=== PATIENT | female | born 1945 | race Caucasian/White ===

== ENCOUNTER 2016-07-01 22:47 | Emergency (ER) | payer MEDICARE, MEDICAID ==
[2016-07-01] MEDS ORDERED: NORMAL SALINE 1000 ML 500 ML IV ONE (23:00)
--- NOTE | 2016-07-01 23:11 | ER Document Report ---
ED Cardiac - General Mode of Arrival: Medic Information source: Patient TRAVEL OUTSIDE OF THE [place] IN LAST 30 DAYS: No - HPI Patient complains to provider of: Palpitations Quality of pain: None Severity now: None Associated symptoms: None Similar symptoms previously: No Recently seen / treated by doctor: No <VEDA ARELLANO - Last Filed: 07/02/16 04:00> <DEX MARTINEZ - Last Filed: 07/02/16 05:34> - General Stated Complaint: CHEST PAIN Notes: Patient is a 70 year old female that presents to the emergency department today with complaints of a heart racing sensation. Patient states this lasted for around 15-20 minutes. Patient does note she has had increased stress recently. Patient states there was no pain associated with the heart racing. Patient states she has had diarrhea recently. Patient denies any medication changes, recent illness, fevers, or a cough. (VEDA ARELLANO) - Related Data Allergies/Adverse Reactions: bupropion HCl [From Wellbutrin] Allergy (Severe, Verified 05/29/16 06:53) extreme depression Iodinated Contrast Media - Oral and Allergy (Mild, Verified 05/29/16 06:53) ithcing Past Medical History - General Information source: Patient - Social History Smoking Status: Current Every Day Smoker Cigarette use (# per day): Yes Frequency of alcohol use: None Drug Abuse: None Lives with: Family Family History: Reviewed & Not Pertinent - Past Medical History Cardiac Medical History: Reports: Hx Hypercholesterolemia, Hx Hypertension Pulmonary Medical History: Reports: Hx COPD, Hx Sleep Apnea Endocrine Medical History: Reports: Hx Diabetes Mellitus Type 1, Hx Diabetes Mellitus Type 2 Renal/ Medical History: GI Medical History: Reports: Hx Diverticulitis, Hx Gastroesophageal Reflux Disease Musculoskeltal Medical History: Reports Hx Arthritis - degenerative, Reports Hx Musculoskeletal Trauma Psychiatric Medical History: Reports: Hx Depression Past Surgical History: Reports: Hx Hysterectomy, Hx Orthopedic Surgery - right hip and knee - Immunizations Immunizations up to date: Yes Hx Diphtheria, Pertussis, Tetanus Vaccination: Yes Hx Pneumococcal Vaccination: 06/27/10 <VEDA ARELLANO - Last Filed: 07/02/16 04:00> Review of Systems - Review of Systems Constitutional: See HPI, Diaphoresis. denies: Fever EENT: No symptoms reported Cardiovascular: See HPI, Heart racing Respiratory: denies: Cough Gastrointestinal: See HPI, Diarrhea Genitourinary: No symptoms reported Female Genitourinary: No symptoms reported Musculoskeletal: No symptoms reported Skin: No symptoms reported Hematologic/Lymphatic: No symptoms reported Neurological/Psychological: No symptoms reported -: Yes All other systems reviewed and negative <VEDA ARELLANO - Last Filed: 07/02/16 04:00> Physical Exam <VEDA ARELLANO - Last Filed: 07/02/16 04:00> <DEX MARTINEZ - Last Filed: 07/02/16 05:34> - Vital signs Vitals: Resp 32 H 07/01/16 23:02 (VEDA ARELLANO) (DXE MARTINEZ) - Notes Notes: Physical Exam: General: Alert, appears well. HEENT: Normocephalic. Atraumatic. PERRL. Extraocular movements intact. Oropharynx clear. Dry mucous membranes. Neck: Supple. Non-tender. Respiratory: No respiratory distress. Clear and equal breath sounds bilaterally. Cardiovascular: Tachycardic, regular rhythm. Abdominal: Normal Inspection. Non-tender. No distension. Normal Bowel Sounds. Back: Non-tender. No deformity or step off. Extremities: Moves all four extremities. Upper extremities: Normal inspection. Non-tender. Normal color. Normal ROM. Normal temperature. Lower extremities: Normal inspection. Non-tender. No edema. Normal color. Normal ROM. Normal temperature. Neurological: Normal cognition. AAOx4. Normal speech. Psychological: Normal affect. Normal Mood. Skin: Warm. Dry. Normal color. (VEDA ARELLANO) Course - Laboratory Result Diagrams: 07/01/16 23:05 07/01/16 23:05 <VEDA ARELLANO - Last Filed: 07/02/16 04:00> - Laboratory Result Diagrams: 07/01/16 23:05 07/01/16 23:05 <DEX MARTINEZ - Last Filed: 07/02/16 05:34> - Re-evaluation Re-evalutation: 07/02/16 05:31 Patient feels better at this time. Patient is not tachycardic. Patient has been observed in the emergency department for 7 hours. No further tachycardia. Patient is been hydrated. Troponin is negative 2. Patient will be discharged home and is to follow-up with her doctor. Return immediately if any worsening or if any worsening or concerning symptoms. Understands agrees with plan. Stable for discharge. (DEX MARTINEZ) - Vital Signs Vital signs: Temp Pulse Resp BP Pulse Ox 98.4 F 25 L 22 H 140/77 H 90 L 07/01/16 23:06 07/01/16 23:06 07/02/16 03:00 07/02/16 02:01 07/02/16 03:00 (VEDA ARELLANO) (DEX MARTINEZ) - Laboratory Laboratory results interpreted by me: 07/01/16 07/01/16 07/01/16 23:05 23:05 23:05 WBC 11.7 H RBC 5.41 H Hgb 16.0 H Hct 47.2 H Sodium 146.3 H Creatinine 1.32 H Est GFR ( Amer) 48 L Est GFR (Non-Af Amer) 40 L Glucose 130 H Urine Protein 30 H Urine Glucose (UA) 50 H Urine Blood SMALL H (DEX MARTINEZ) Discharge <VEDA ARELLANO - Last Filed: 07/02/16 04:00> <DEX MARTINEZ - Last Filed: 07/02/16 05:34> - Discharge Clinical Impression: SVT (supraventricular tachycardia) Condition: Stable Disposition: HOME, SELF-CARE Instructions: Paroxysmal Supraventricular Tachycardia ([facility]) Additional Instructions: Please follow-up with your doctor next week. Return immediately if you have any worsening or concerning symptoms. Please avoid caffeine. Scribe Attestation: 07/02/16 05:34 I personally performed the services described in the documentation, reviewed and edited the documentation which was dictated to the scribe in my presence, and it accurately records my words and actions. (DEX MARTINEZ) Scribe Documentation - Scribe Written by Jose Eduardo:: Jose Eduardo Murphy, [id number] 07/01/2016 acting as scribe for :: Ritika <VEDA ARELLANO - Last Filed: 07/02/16 04:00>
[2016-07-01 23:24] LABS: ABSOLUTE BASOPHILS # (AUTO) 0.1 10^3/uL (0.0-0.2); ABSOLUTE EOSINOPHILS # (AUTO) 0.2 10^3/uL (0.0-0.6); ABSOLUTE LYMPHOCYTES (AUTO) 3.8 10^3/uL (0.5-4.7); ABSOLUTE MONOCYTES (AUTO) 0.7 10^3/uL (0.1-1.4); ABSOLUTE NEUT (AUTO) 6.9 10^3/uL (1.7-8.2); BASOPHILS % (AUTO) 0.9 % (0-2); EOSINOPHILS % (AUTO) 1.8 % (0-6); HEMATOCRIT 47.2 % (36.0-47.0); HGB HCT DIFFERENCE 0.8; LYMPHOCYTES % (AUTO) 32.2 % (13-45); MEAN CORPUSCULAR HEMOGLOBIN 29.5 pg (27.0-33.4); MEAN CORPUSCULAR HGB CONC 33.8 g/dL (32.0-36.0); MEAN CORPUSCULAR VOLUME 87 fl (80-97); MONOCYTES % (AUTO) 6.4 % (3-13); RED BLOOD COUNT 5.41 10^6/uL (3.72-5.28); RED CELL DISTRIBUTION WIDTH 12.8 % (11.5-14.0); SEGMENTED NEUTROPHILS % (AUTO) 58.7 % (42-78); WHITE BLOOD COUNT 11.7 10^3/uL (4.0-10.5)
[2016-07-01 23:25] LABS: APPEARANCE,URINE CLEAR; BILIRUBIN,URINE NEGATIVE (NEGATIVE); GLUCOSE, URINE 50 mg/dL (NEGATIVE); KETONES,URINE NEGATIVE (NEGATIVE); LEUKOCYTE ESTERASE,URINE NEGATIVE (NEGATIVE); NITRITE,URINE NEGATIVE (NEGATIVE); PROTEIN,URINE 30 mg/dL (NEGATIVE); URINE SPECIFIC GRAVITY 1.006; UROBILINOGEN,URINE NEGATIVE mg/dL (<2.0)
[2016-07-01 23:32] LABS: ALANINE AMINOTRANSFERASE 32 U/L (9-52); ALBUMIN 4.4 g/dL (3.5-5.0); ALKALINE PHOSPHATASE 126 U/L (38-126); ANION GAP 15 (5-19); ASPARTATE AMINO TRANSFERASE 17 U/L (14-36); BILIRUBIN,TOTAL 0.3 mg/dL (0.2-1.3); BLOOD UREA NITROGEN 16 mg/dL (7-20); CALCIUM 9.5 mg/dL (8.4-10.2); CARBON DIOXIDE 26 mmol/L (22-30); CHLORIDE 105 mmol/L (98-107); CREATINE KINASE 46 U/L (30-135); CREATININE RESULT 1.32 mg/dL (0.52-1.25); GLUCOSE 130 mg/dL (75-110); SODIUM 146.3 mmol/L (137-145); TOTAL PROTEIN 7.2 g/dL (6.3-8.2)
[2016-07-01 23:50] LABS: TROPONIN I < 0.012 ng/mL
[2016-07-02] MEDS ORDERED: NORMAL SALINE 1000 ML 1,000 ML IV ONE (01:52)
--- NOTE | 2016-07-02 05:12 | EKG REPORT ---
SEVERITY:- ABNORMAL ECG - SINUS TACHYCARDIA RIGHT AXIS DEVIATION CONSIDER ANTEROSEPTAL INFARCT : Confirmed by: Laura Haddad 02-Jul-2016 05:11:07
[2016-07-02 05:51] VITALS: BP 130/47
== END 2016-07-02 05:51 | disposition home or self-care (01) ==
LOC: ER 22:47
DX: I47.1 Supraventricular tachycardia (principal); R07.9 Chest pain, unspecified; R61 Generalized hyperhidrosis; F17.210 Nicotine dependence, cigarettes, uncomplicated; E78.00 Pure hypercholesterolemia, unspecified; I10 Essential (primary) hypertension; J44.9 Chronic obstructive pulmonary disease, unspecified; E11.9 Type 2 diabetes mellitus without complications; Z90.710 Acquired absence of both cervix and uterus
CPT/HCPCS: 93005; 99285; 96360; 36415; 82553; 82550; 84443; 85025; 80053; 81001; 84484; 83605; 71010; 93010; J7030 ×2

== ENCOUNTER 2017-04-02 09:14 | Observation (INO) | payer MEDICARE, MEDICAID ==
[2017-04-02] MEDS ORDERED: ASPIRIN 81 MG TABLET, CHEWABLE PO ONE (09:36)
--- NOTE | 2017-04-02 09:36 | ER Document Report ---
ED Medical Screen (RME) - General Chief Complaint: Chest Pain Stated Complaint: CHEST PAIN Time Seen by Provider: 04/02/17 09:36 Mode of Arrival: Ambulatory Information source: Patient Notes: 71-year-old female presents with palpitations. Patient notes she has a history of esophageal spasms for which her wire mesh knitter has put her on nitro. I have greeted and performed a rapid initial assessment of this patient. A comprehensive ED assessment and evaluation of the patient, analysis of test results and completion of the medical decision making process will be conducted by additional ED providers. PHYSICAL EXAMINATION: GENERAL: Well-appearing, well-nourished and in no acute distress. HEAD: Atraumatic, normocephalic. EYES: Pupils equal round extraocular movements intact, conjunctiva are normal. ENT: Nares patent NECK: Normal range of motion LUNGS: No respiratory distress Musculoskeletal: Normal range of motion NEUROLOGICAL: Normal speech, normal gait. PSYCH: Normal mood, normal affect. SKIN: Warm, Dry, normal turgor, no rashes or lesions noted. TRAVEL OUTSIDE OF THE [place] IN LAST 30 DAYS: No - Related Data Allergies/Adverse Reactions: bupropion HCl [From Wellbutrin] Allergy (Severe, Verified 04/02/17 09:25) extreme depression Iodinated Contrast- Oral and IV Dye Allergy (Mild, Verified 04/02/17 09:25) ithcing Past Medical History - Past Medical History Cardiac Medical History: Reports: Hx Hypercholesterolemia, Hx Hypertension Denies: Hx Coronary Artery Disease, Hx Heart Attack Pulmonary Medical History: Reports: Hx COPD, Hx Sleep Apnea Denies: Hx Asthma, Hx Bronchitis, Hx Pneumonia Neurological Medical History: Denies: Hx Cerebrovascular Accident, Hx Seizures Endocrine Medical History: Reports: Hx Diabetes Mellitus Type 1, Hx Diabetes Mellitus Type 2 Renal/ Medical History: Denies: Hx Peritoneal Dialysis GI Medical History: Reports: Hx Diverticulitis, Hx Gastroesophageal Reflux Disease. Denies: Hx Hepatitis, Hx Hiatal Hernia, Hx Ulcer Musculoskeltal Medical History: Reports Hx Arthritis - degenerative, Reports Hx Musculoskeletal Trauma Psychiatric Medical History: Reports: Hx Depression Infectious Medical History: Denies: Hx Hepatitis Past Surgical History: Reports: Hx Hysterectomy, Hx Orthopedic Surgery - right hip and knee. Denies: Hx Mastectomy, Hx Open Heart Surgery, Hx Pacemaker - Immunizations Immunizations up to date: Yes Hx Diphtheria, Pertussis, Tetanus Vaccination: Yes Physical Exam - Vital signs Vitals: Temp Pulse Resp BP Pulse Ox 98.3 F 74 20 196/88 H 97 04/02/17 09:25 04/02/17 09:25 04/02/17 09:25 04/02/17 09:25 04/02/17 09:25 Course - Vital Signs Vital signs: Temp Pulse Resp BP Pulse Ox 98.3 F 74 20 196/88 H 97 04/02/17 09:25 04/02/17 09:25 04/02/17 09:25 04/02/17 09:25 04/02/17 09:25
--- NOTE | 2017-04-02 10:04 | RADIOLOGY REPORT (SQ) ---
EXAM DESCRIPTION: CHEST SINGLE VIEW COMPLETED DATE/TIME: 04/02/2017 9:56 am REASON FOR STUDY: chest pain COMPARISON: 07/01/2016 EXAM PARAMETERS: NUMBER OF VIEWS: One view. TECHNIQUE: Single frontal radiographic view of the chest acquired. RADIATION DOSE: NA LIMITATIONS: None. FINDINGS: LUNGS AND PLEURA: No opacities, masses or pneumothorax. No pleural effusion. MEDIASTINUM AND HILAR STRUCTURES: No masses. Contour normal. HEART AND VASCULAR STRUCTURES: Heart normal in size. Normal vasculature. BONES: No acute findings. HARDWARE: None in the chest. OTHER: No other significant finding. IMPRESSION: NO ACUTE RADIOGRAPHIC FINDING IN THE CHEST. NO SIGNIFICANT CHANGE FROM PRIOR STUDY. TECHNICAL DOCUMENTATION: JOB ID: [id number]
[2017-04-02 10:09] LABS: ABSOLUTE BASOPHILS # (AUTO) 0.1 10^3/uL (0.0-0.2); ABSOLUTE EOSINOPHILS # (AUTO) 0.1 10^3/uL (0.0-0.6); ABSOLUTE LYMPHOCYTES (AUTO) 2.8 10^3/uL (0.5-4.7); ABSOLUTE MONOCYTES (AUTO) 0.6 10^3/uL (0.1-1.4); ABSOLUTE NEUT (AUTO) 4.9 10^3/uL (1.7-8.2); BASOPHILS % (AUTO) 0.8 % (0-2); EOSINOPHILS % (AUTO) 1.7 % (0-6); HEMATOCRIT 45.4 % (36.0-47.0); HEMOGLOBIN 15.7 g/dL (12.0-15.5); HGB HCT DIFFERENCE 1.7; LYMPHOCYTES % (AUTO) 32.8 % (13-45); MEAN CORPUSCULAR HEMOGLOBIN 29.4 pg (27.0-33.4); MEAN CORPUSCULAR HGB CONC 34.6 g/dL (32.0-36.0); MEAN CORPUSCULAR VOLUME 85 fl (80-97); MONOCYTES % (AUTO) 7.5 % (3-13); RED BLOOD COUNT 5.35 10^6/uL (3.72-5.28); RED CELL DISTRIBUTION WIDTH 12.7 % (11.5-14.0); SEGMENTED NEUTROPHILS % (AUTO) 57.2 % (42-78); WHITE BLOOD COUNT 8.5 10^3/uL (4.0-10.5)
[2017-04-02] MEDS ORDERED: NITROGLYCERIN 0.4 MG/TAB 25 TAB/BOTTLE SL ONE (10:12)
[2017-04-02 10:25] LABS: ALANINE AMINOTRANSFERASE 23 U/L (9-52); ALBUMIN 4.4 g/dL (3.5-5.0); ALKALINE PHOSPHATASE 118 U/L (38-126); ANION GAP 12 (5-19); ASPARTATE AMINO TRANSFERASE 14 U/L (14-36); BILIRUBIN,DIRECT 0.3 mg/dL (0.0-0.4); BILIRUBIN,TOTAL 0.5 mg/dL (0.2-1.3); BLOOD UREA NITROGEN 17 mg/dL (7-20); CALCIUM 10.1 mg/dL (8.4-10.2); CARBON DIOXIDE 31 mmol/L (22-30); CHLORIDE 103 mmol/L (98-107); CREATINE KINASE 27 U/L (30-135); CREATININE RESULT 0.84 mg/dL (0.52-1.25); GLUCOSE 90 mg/dL (75-110); MAGNESIUM 1.6 mg/dL (1.6-2.3); POTASSIUM 4.1 mmol/L (3.6-5.0); SODIUM 145.8 mmol/L (137-145); TOTAL PROTEIN 7.1 g/dL (6.3-8.2)
--- NOTE | 2017-04-02 10:33 | ER Document Report ---
ED General - General Chief Complaint: Chest Pain Stated Complaint: CHEST PAIN Time Seen by Provider: 04/02/17 09:36 Mode of Arrival: Ambulatory Information source: Patient Notes: Patient presents emergency department with complaints of heart flutter, chest pain. Patient reports yesterday she was playing the computer and she felt some chest pain took a nitro and the pain went away. After the nitro she felt esophageal burning. Patient reports history of esophageal spasms for which she was prescribed nitro. Describes history of [place]/ CAD. She thought she was experiencing another esophageal spasm.. She reports pain was off and on yesterday. Today pain is constant. She reports it feels like needle pricks. She also complains of nausea since yesterday. Reports it feels like it giron under her right arm. TRAVEL OUTSIDE OF THE [place] IN LAST 30 DAYS: No - HPI Onset: Yesterday Onset/Duration: Persistent Quality of pain: Sharp Pain Level: 3 Associated symptoms: Nausea Exacerbated by: Denies Relieved by: Denies Similar symptoms previously: Yes Recently seen / treated by doctor: No - Related Data Allergies/Adverse Reactions: bupropion HCl [From Wellbutrin] Allergy (Severe, Verified 04/02/17 09:25) extreme depression Iodinated Contrast- Oral and IV Dye Allergy (Mild, Verified 04/02/17 10:17) itching Home Medications: Current Home Medications Aspirin [Ecotrin 81 mg EC Tablet] 81 mg PO DAILY 04/02/17 [History] Carvedilol [Coreg 12.5 mg Tablet] 12.5 mg PO Q12 04/02/17 [History] Chlorthalidone [Hygroton 25 mg Tablet] 25 mg PO DAILY 04/02/17 [History] Donepezil HCl [Aricept] 10 mg PO QPM 04/02/17 [History] Insulin Aspart [Novolog Flexpen] 0 unit SQ .SLIDING SCALE 04/02/17 [History] Insulin Glargine,Hum.rec.anlog [Lantus Solostar] 30 unit SQ QAM 04/02/17 [ History] Lisinopril [Prinivil 40 mg Tablet] 40 mg PO DAILY 04/02/17 [History] Simvastatin [Zocor 20 mg Tablet] 20 mg PO QPM 04/02/17 [History] Venlafaxine HCl [Venlafaxine HCl ER] 150 mg PO DAILY 04/02/17 [History] Past Medical History - General Information source: Patient - Social History Smoking Status: Current Every Day Smoker Cigarette use (# per day): Yes - 1ppd Chew tobacco use (# tins/day): No Frequency of alcohol use: None Drug Abuse: None Lives with: Family Family History: Reviewed & Not Pertinent Patient has suicidal ideation: No Patient has homicidal ideation: No - Past Medical History Cardiac Medical History: Reports: Hx Hypercholesterolemia, Hx Hypertension Denies: Hx Coronary Artery Disease, Hx Heart Attack Pulmonary Medical History: Reports: Hx COPD, Hx Sleep Apnea Denies: Hx Asthma, Hx Bronchitis, Hx Pneumonia Neurological Medical History: Denies: Hx Cerebrovascular Accident, Hx Seizures Endocrine Medical History: Reports: Hx Diabetes Mellitus Type 1, Hx Diabetes Mellitus Type 2 Renal/ Medical History: Denies: Hx Peritoneal Dialysis GI Medical History: Reports: Hx Diverticulitis, Hx Gastroesophageal Reflux Disease. Denies: Hx Hepatitis, Hx Hiatal Hernia, Hx Ulcer Musculoskeltal Medical History: Reports Hx Arthritis - degenerative, Reports Hx Musculoskeletal Trauma Psychiatric Medical History: Reports: Hx Depression Infectious Medical History: Denies: Hx Hepatitis Past Surgical History: Reports: Hx Cholecystectomy, Hx Hysterectomy, Hx Orthopedic Surgery - right hip and knee. Denies: Hx Mastectomy, Hx Open Heart Surgery, Hx Pacemaker - Immunizations Immunizations up to date: Yes Hx Diphtheria, Pertussis, Tetanus Vaccination: Yes Hx Pneumococcal Vaccination: 06/27/10 Review of Systems - Review of Systems Notes: Review HPI for review of systems., All other systems negative Physical Exam - Vital signs Vitals: Temp Pulse Resp BP Pulse Ox 98.3 F 74 20 196/88 H 97 04/02/17 09:25 04/02/17 09:25 04/02/17 09:25 04/02/17 09:25 04/02/17 09:25 - Notes Notes: PHYSICAL EXAMINATION: GENERAL: nontoxic looking HEAD: Atraumatic, normocephalic. EYES: Pupils equal round and reactive to light, extraocular movements intact, sclera anicteric, conjunctiva are normal. ENT: nares patent, oropharynx clear without exudates. Moist mucous membranes. NECK: Normal range of motion, supple without lymphadenopathy LUNGS: CTAB and equal. No wheezes rales or rhonchi. chest wall ttp HEART: Regular rate and rhythm without murmurs ABDOMEN: Soft, no tenderness. No guarding, no rebound EXTREMITIES: Normal range of motion, no pitting edema. No cyanosis. NEUROLOGICAL: Cranial nerves grossly intact. Normal sensory/motor exams. PSYCH: Normal mood, normal affect. SKIN: Warm, Dry, normal turgor, no rashes or lesions noted Course - Re-evaluation Re-evalutation: 04/02/17 10:15 SL NTG given, pt reports relief of CP with ntg. 04/02/17 11:30 Pain relieved with - Vital Signs Vital signs: Temp Pulse Resp BP Pulse Ox 98.1 F 62 13 150/59 H 98 04/02/17 13:46 04/02/17 14:00 04/02/17 13:46 04/02/17 13:46 04/02/17 13:46 - Laboratory Result Diagrams: 04/02/17 09:45 04/02/17 09:45 Laboratory results interpreted by me: 04/02/17 04/02/17 09:45 09:45 RBC 5.35 H Hgb 15.7 H Sodium 145.8 H Carbon Dioxide 31 H Creatine Kinase 27 L - Diagnostic Test Radiology reviewed: Image reviewed, Reports reviewed - Negative chest x-ray no pneumonia - EKG Interpretation by Me EKG shows normal: Sinus rhythm Discharge - Discharge Clinical Impression: Chest pain Qualifiers: Chest pain type: unspecified Qualified Code(s): R07.9 - Chest pain, unspecified Condition: Stable Disposition: ADMITTED OBSERVATION Admitting Provider: Hospitalist [facility] Unit Admitted: Telemetry
[2017-04-02 10:37] LABS: CREATINE KINASE MB 0.52 ng/mL (<4.55)
[2017-04-02 10:47] LABS: TROPONIN I < 0.012 ng/mL
[2017-04-02] MEDS ORDERED: NITROGLYCERIN 2% OINTMENT 1 GM PACKET TP ONE (11:08)
[2017-04-02] MEDS ORDERED: ONDANSETRON 4 MG TAB.RAPDIS PO PRN (11:42)
[2017-04-02] MEDS ORDERED: LANSOPRAZOLE 15 MG TAB.RAP.DR PO ONE (11:42)
[2017-04-02] MEDS ORDERED: MORPHINE SULFATE 10 MG/ML INJ IV PRN (11:42)
[2017-04-02] MEDS ORDERED: DEXTROSE 40% GEL 15 GM TUBE PO PRN ×2 (11:46)
[2017-04-02] MEDS ORDERED: DEXTROSE 50%-WATER 25 GM/50 ML DISP.SYRIN IV PRN ×2 (11:46)
[2017-04-02] MEDS ORDERED: GLUCAGON,HUMAN RECOMB 1 MG INJ IM PRN (11:46)
[2017-04-02] MEDS: NITROGLYCERIN 2% OINTMENT 1 GM PACKET TP SCH ×2 (12:00→17:15)
[2017-04-02 13:17] LABS: CREATINE KINASE MB 0.42 ng/mL (<4.55)
[2017-04-02 13:19] LABS: TROPONIN I < 0.012 ng/mL
[2017-04-02] MEDS ORDERED: METOCLOPRAMIDE HCL ORAL SOLN 10 MG/10 ML UDCUP PO ONE (15:14)
[2017-04-02] MEDS ORDERED: LIDOCAINE 2% VISCOUS SOLN 20 ML UDCUP PO ONE (15:14)
[2017-04-02] MEDS ORDERED: MAG HYDROX/AL HYDROX/SIMETH SUSP 30 ML UDCUP PO ONE (15:14)
[2017-04-02] MEDS: METFORMIN HCL 500 MG TABLET PO SCH (17:14)
[2017-04-02] MEDS: SIMVASTATIN 10 MG TABLET PO SCH (17:14)
[2017-04-02] MEDS: DOCUSATE SODIUM 100 MG CAPSULE PO SCH (17:21)
[2017-04-02] MEDS ORDERED: LEVALBUTEROL HCL NEB 1.25 MG/3 ML AMPUL NEB PRN (17:43)
--- NOTE | 2017-04-02 17:59 | PDOC H&P ---
History of Present Illness Admission Date/PCP: 04/02/17 11:42 History of Present Illness: MADELINE ALMONTE is a 71 year old female with a past medical history of diabetes mellitus, hypertension, hyperlipidemia, cervical cancer, dementia, questionable COPD who presents to the emergency department with complaints of chest pain. She reports that while she is lying on her left side yesterday she had some feelings of fluttering in her chest. This went away spontaneously and lasted less than 30 seconds. She reports that she has a history of esophageal spasm and had some sensation that was similar and took nitroglycerin. She reports that this incision has not completely gone away yet. She reports that she was at rest when she experienced some sharp pain that went from her midepigastrium to her midsternum and all across to her left breast. She denied any associated vomiting, shortness of breath, diaphoresis. She does report nausea. Patient is referred to the hospitalist service for chest pain. Past Medical History Cardiac Medical History: Reports: Hyperlipidema, Hypertension Denies: Coronary Artery Disease, Myocardial Infarction Pulmonary Medical History: Reports: Chronic Obstructive Pulmonary Disease (COPD) , Sleep Apnea Denies: Asthma, Bronchitis, Pneumonia Neurological Medical History: Denies: Seizures Endocrine Medical History: Reports: Diabetes Mellitus Type 2, Obesity Renal/ Medical History: Malignancy Medical History: Reports: Cervical Cancer GI Medical History: Reports: Diverticulitis, Gastroesophageal Reflux Disease Denies: Hepatitis, Hiatal Hernia Musculoskeltal Medical History: Reports: Arthritis - degenerative Psychiatric Medical History: Reports: Depression Hematology: Denies: Anemia, Sickle Cell Disease Past Surgical History Past Surgical History: Reports: Cholecystectomy, Hysterectomy, Orthopedic Surgery - right hip and knee, Other - Bowel resection Denies: Amputation, Mastectomy, Pacemaker Social History Lives with: Family Smoking Status: Current Every Day Smoker Cigarettes Packs Per Day: 1 Number of Years Smokin Last Time Smoked: 04/02/2017 Frequency of Alcohol Use: None Hx Recreational Drug Use: No Drugs: None Hx Prescription Drug Abuse: No - Advance Directive Resuscitation Status: Full Code Surrogate healthcare decision maker:: Barrie Alvarado, significant other Family History Family History: CAD, DM, Hypertension, Malignancy, Other - ESRD Parental Family History Reviewed: Yes Children Family History Reviewed: Yes Sibling(s) Family History Reviewed.: Yes Medication/Allergy Home Medications: Aspirin [Ecotrin 81 mg EC Tablet] 81 mg PO DAILY 04/02/17 Carvedilol [Coreg 12.5 mg Tablet] 12.5 mg PO Q12 04/02/17 Chlorthalidone [Hygroton 25 mg Tablet] 25 mg PO DAILY 04/02/17 Donepezil HCl [Aricept] 10 mg PO QPM 04/02/17 Insulin Aspart [Novolog Flexpen] 0 unit SQ .SLIDING SCALE 04/02/17 Insulin Glargine,Hum.rec.anlog [Lantus Solostar] 30 unit SQ QAM 04/02/17 Lisinopril [Prinivil 40 mg Tablet] 40 mg PO DAILY 04/02/17 Simvastatin [Zocor 20 mg Tablet] 20 mg PO QPM 04/02/17 Venlafaxine HCl [Venlafaxine HCl ER] 150 mg PO DAILY 04/02/17 Allergies/Adverse Reactions: bupropion HCl [From Wellbutrin] Allergy (Severe, Verified 04/02/17 09:25) extreme depression Iodinated Contrast- Oral and IV Dye Allergy (Mild, Verified 04/02/17 10:17) itching Review of Systems Constitutional: PRESENT: chills. ABSENT: fever(s), headache(s), weakness, weight gain, weight loss Eyes: ABSENT: visual disturbances Ears: ABSENT: hearing changes Cardiovascular: ABSENT: chest pain, dyspnea on exertion, edema, orthropnea, palpitations Respiratory: PRESENT: cough, sputum - White. ABSENT: dyspnea, hemoptysis Gastrointestinal: PRESENT: bloating, heartburn, nausea. ABSENT: abdominal pain , constipation, diarrhea, hematemesis, hematochezia, melena, vomiting Genitourinary: ABSENT: dysuria, hematuria Musculoskeletal: ABSENT: joint swelling Integumentary: ABSENT: rash, wounds Neurological: ABSENT: abnormal gait, abnormal speech, confusion, dizziness, focal weakness, syncope Psychiatric: ABSENT: anxiety, depression, homidical ideation, suicidal ideation Endocrine: ABSENT: cold intolerance, heat intolerance, polydipsia, polyuria Hematologic/Lymphatic: ABSENT: easy bleeding, easy bruising Physical Exam Vital Signs: Temp Pulse Resp BP Pulse Ox 98.1 F 62 13 150/59 H 98 04/02/17 13:46 04/02/17 14:00 04/02/17 13:46 04/02/17 13:46 04/02/17 13:46 Intake & Output 04/01/17 04/02/17 04/03/17 06:59 06:59 06:59 Weight 76.856 kg General appearance: PRESENT: no acute distress, obese, well-developed, well- nourished Head exam: PRESENT: atraumatic, normocephalic Eye exam: PRESENT: conjunctiva pink, EOMI, PERRLA. ABSENT: scleral icterus Ear exam: PRESENT: normal external ear exam Mouth exam: PRESENT: moist, tongue midline Teeth exam: PRESENT: edentulous Neck exam: ABSENT: JVD, lymphadenopathy, thyromegaly, tracheal deviation Respiratory exam: PRESENT: clear to auscultation jered. ABSENT: rales, rhonchi, wheezes Cardiovascular exam: PRESENT: RRR, +S1, +S2. ABSENT: diastolic murmur, gallop, rubs, systolic murmur Pulses: PRESENT: normal dorsalis pedis pul Vascular exam: PRESENT: normal capillary refill GI/Abdominal exam: PRESENT: normal bowel sounds, soft. ABSENT: distended, guarding, mass, organolmegaly, rebound, tenderness Rectal exam: PRESENT: deferred Extremities exam: PRESENT: full ROM. ABSENT: calf tenderness, clubbing, pedal edema Neurological exam: PRESENT: alert, awake, oriented to person, oriented to place , oriented to time, oriented to situation, CN II-XII grossly intact. ABSENT: motor sensory deficit Psychiatric exam: PRESENT: appropriate affect, normal mood. ABSENT: homicidal ideation, suicidal ideation Skin exam: PRESENT: dry, intact, warm. ABSENT: cyanosis, rash Results Laboratory Results: 04/02/17 12:30 CK-MB (CK-2) 0.42 Troponin I < 0.012 Impressions: Chest X-Ray 04/02/17 09:36 IMPRESSION: NO ACUTE RADIOGRAPHIC FINDING IN THE CHEST. NO SIGNIFICANT CHANGE FROM PRIOR STUDY. Assessment & Plan - Diagnosis (1) Chest pain Qualifiers: Chest pain type: unspecified Qualified Code(s): R07.9 - Chest pain, unspecified Is this a current diagnosis for this admission?: Yes Plan: Likely secondary to COPD exacerbation versus CHF exacerbation Patient is at high risk for ACS This patient on telemetry, serial cardiac enzymes, stress test in a.m. 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, managed as type 1 Is this a current diagnosis for this admission?: Yes Plan: Check A1c continue home medications carb controlled diet (3) Chronic airway obstruction Qualifiers: Emphysema type: unspecified Is this a current diagnosis for this admission?: Yes Plan: Place on Solu-Medrol and nebulized treatments (4) Tobacco use disorder Is this a current diagnosis for this admission?: Yes Plan: Encourage cessation offered nicotine patch which she declined (5) Obesity (BMI 30.0-34.9) Is this a current diagnosis for this admission?: Yes - Time Time Spent: 50 to 70 Minutes Medications reviewed and adjusted accordingly: Yes Anticipated discharge: Home Within: within 48 hours
[2017-04-02 19:02] LABS: CREATINE KINASE MB 0.43 ng/mL (<4.55)
[2017-04-02 19:07] LABS: TROPONIN I < 0.012 ng/mL
[2017-04-02] MEDS: IPRATROPIUM/ALBUTEROL 0.5-2.5 MG/3 ML AMPUL NEB SCH (20:26)
[2017-04-02] MEDS: METHYLPREDNISOLONE INJ 40 MG/1 ML SDV IV SCH (21:37)
[2017-04-02] MEDS: CARVEDILOL 12.5 MG TABLET PO SCH (21:37)
[2017-04-02] MEDS ORDERED: ATORVASTATIN CALCIUM 40 MG TABLET PO SCH (22:00)
[2017-04-03] MEDS: NITROGLYCERIN 2% OINTMENT 1 GM PACKET TP SCH ×4 (00:13→17:04)
[2017-04-03 01:08] LABS: CREATINE KINASE MB 0.41 ng/mL (<4.55); TROPONIN I < 0.012 ng/mL
[2017-04-03] MEDS: METHYLPREDNISOLONE INJ 40 MG/1 ML SDV IV SCH ×2 (05:59→13:27)
[2017-04-03 06:44] LABS: CHOLESTEROL 165.54 mg/dL (0-200); Direct HDL 44 mg/dL (>40); TRIGLYCERIDES 73 mg/dL (<150)
[2017-04-03 06:55] LABS: DIRECT LDL 117 mg/dL (<100)
[2017-04-03] MEDS: INSULIN LISPRO 100 UNIT/ML 3 ML VIAL SUBCUT PRN ×2 (06:56→17:03)
[2017-04-03 07:00] LABS: CREATINE KINASE < 20 U/L (30-135)
[2017-04-03] MEDS ORDERED: INSULIN GLARGINE,HUM.REC.ANLOG 300 UNIT/3 ML INSULN.PEN SUBCUT SCH (08:00)
[2017-04-03] MEDS: IPRATROPIUM/ALBUTEROL 0.5-2.5 MG/3 ML AMPUL NEB SCH ×2 (08:32→14:05)
[2017-04-03] MEDS ORDERED: CHLORTHALIDONE 25 MG TABLET PO SCH (10:00)
[2017-04-03] MEDS ORDERED: (PENDING PHARMACY ID) (Lisinopril [Lisinopril] 40 MG) PO SCH (10:00)
[2017-04-03] MEDS ORDERED: LISINOPRIL 10 MG TABLET PO SCH (10:00)
[2017-04-03] MEDS ORDERED: ASPIRIN 325 MG TABLET, ENT COATED PO SCH (10:00)
[2017-04-03] MEDS ORDERED: VENLAFAXINE HCL 75 MG CAP.SR.24H PO SCH (10:00)
[2017-04-03] MEDS: METFORMIN HCL 500 MG TABLET PO SCH ×2 (11:22→17:01)
[2017-04-03] MEDS: CARVEDILOL 12.5 MG TABLET PO SCH (11:22)
[2017-04-03] MEDS: DOCUSATE SODIUM 100 MG CAPSULE PO SCH ×2 (11:23→17:04)
--- NOTE | 2017-04-03 12:33 | DRAGON STRESS TEST REPORT ---
INTRAVENOUS LEXISCAN CARDIOLITE STRESS TEST USING SINGLE PHOTON EMMISION COMPUTERIZED TOMOGRAPHIC. DATE OF PROCEDURE: April 03, 2017 INDICATION : Chest pain CARDIAC RISK FACTORS: Diabetes, hypertension, dyslipidemia RESTING EKG: Sinus rhythm without any baseline ST-T wave changes STRESS EKG: No significant changes noted with LexiScan bolus REASON FOR TERMINATION: Protocol. PROCEDURE REPORT: Baseline heart rate 68 beats per minute with blood pressure of 160/54. Patient had no significant complaints. Heart rate at 2 minutes post bolus 95 with a blood pressure of 168/55. 3 minutes post bolus heart rate 85 with blood pressure of 161/60. No significant EKG changes were noted. Patient did complain of chest discomfort during the procedure but there were no significant EKG changes associated. Subsequently in recovery patient was given sublingual nitroglycerin 1 with resolution of chest pain.. Patient injected with Aminophyllin 75 mg at 3 minutes or later after Lexiscan bolus. CONCLUSIONS: Normal EKG and hemodynamic response to IV LexiScan. NUCLEAR DATA: At rest the patient was given 10.68 millicuries of technetium 99 sestamibi injected intravenously. As per protocol rest gated SPECT images were obtained. Subsequently the patient was given intravenous LexiScan at a dose of 0.4 mg in 5 mL intravenously, followed by flush with normal saline. Subsequently the stress dose of 30.9 millicuries of technetium 99 sestamibi was injected intravenously. As per protocol stress gated images were obtained. NUCLEAR INTERPRETATION: Both raw and processed data were used for interpretation. Visual, qualitative, computer-generated quantitative data was used. There was good myocardial uptake of technetium compound. Motion artifact and soft tissue attenuations were noted. Increased visceral uptake was noted. No definitive areas of transient perfusion defect noted. No definitive areas of fixed perfusion defect or scars noted. EKG gated imaging showed LV EF at 76 %, rest and stress gated EF similar visually. T. I D. ratio was 0.93. Lung heart ratio noted to be within normal limits 0.34. No significant extracardiac and abnormal radiotracer activities were noted. RV free wall uptake was noted to be WNL. IMPRESSION: Also refer to comments under nuclear interpretation. Also test results needs to be interpreted in the context of pretest probability. 1. There is no definitive scintigraphic evidence of LexiScan induced myocardial ischemia. 2. There is no definitive scintigraphic evidence of myocardial infarction/scar. 3. EKG gated imaging shows left ventricular ejection fraction of approximately 76 %. 4. Clinical correlation requested as occasionally single vessel disease or balanced ischemia could be missed. In approximately 10% of the cases Lexiscan may not cause adequate vasodilatory stress. RECOMMENDATIONS: Aggressive risk factor modification, medical therapy. Clinical correlation with echocardiogram derived ejection fraction. Inability to exercise by itself can lead to increased cardiovascular event risks. Consider cardiology consultation and or follow-up if clinically indicated. I AM AVAILABLE FOR CARDIOLOGY CONSULTATION AND FOLLOWUP IF REQUESTED BY PMD Laura Haddad M.D., [employer] Manager Game tube inspector, Board certified in cardiovascular diseases, Nuclear cardiology, Echocardiography Cardiac CT and cardiac MRI Ph. [phone] JAYDEN
[2017-04-03] MEDS ORDERED: REGADENOSON INJ 0.4 MG/5 ML DISP.SYRIN IV ONE (14:32)
[2017-04-03] MEDS ORDERED: NITROGLYCERIN 0.4 MG/TAB 25 TAB/BOTTLE ONE (14:32)
[2017-04-03] MEDS ORDERED: AMINOPHYLLINE INJ/PF 250 MG/10 ML SDV IV ONE (14:32)
[2017-04-03] MEDS: SIMVASTATIN 10 MG TABLET PO SCH (17:02)
--- NOTE | 2017-04-03 17:17 | PDOC DISCHARGE SUMMARY ---
General - Admit/Disc Date/PCP Admission Date/Primary Care Provider: 04/02/17 11:42 Discharge Date: 04/03/17 - Discharge Diagnosis (1) Chest pain Is this a current diagnosis for this admission?: Yes 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, managed as type 1 Is this a current diagnosis for this admission?: Yes (3) Chronic airway obstruction Is this a current diagnosis for this admission?: Yes (4) Tobacco use disorder Is this a current diagnosis for this admission?: Yes (5) Obesity (BMI 30.0-34.9) Is this a current diagnosis for this admission?: Yes (6) GERD (gastroesophageal reflux disease) Is this a current diagnosis for this admission?: Yes - Additional Information Resuscitation Status: Full Code Discharge Diet: Cardiac, Diabetic Discharge Activity: Activity As Tolerated Home Medications: Aspirin [Ecotrin 81 mg EC Tablet] 81 mg PO DAILY 04/02/17 Carvedilol [Coreg 12.5 mg Tablet] 12.5 mg PO Q12 04/02/17 Chlorthalidone [Hygroton 25 mg Tablet] 25 mg PO DAILY 04/02/17 Donepezil HCl [Aricept] 10 mg PO QPM 04/02/17 Insulin Aspart [Novolog Flexpen] 0 unit SQ .SLIDING SCALE 04/02/17 Insulin Glargine,Hum.rec.anlog [Lantus Solostar] 30 unit SQ QAM 04/02/17 Lisinopril [Prinivil 40 mg Tablet] 40 mg PO DAILY 04/02/17 Simvastatin [Zocor 20 mg Tablet] 20 mg PO QPM 04/02/17 Venlafaxine HCl [Venlafaxine HCl ER] 150 mg PO DAILY 04/02/17 Albuterol Sulfate [Ventolin Hfa] 1 - 2 puff IH Q4 PRN #1 hfa.aer.ad 04/03/17 Prednisone 10 mg PO ASDIR PRN #1 tab.ds.pk 04/03/17 History of Present Illness History of Present Illness: MADELINE ALMONTE is a 71 year old female with a past medical history of diabetes mellitus, hypertension, hyperlipidemia, cervical cancer, dementia, questionable COPD who presents to the emergency department with complaints of chest pain. She reports that while she is lying on her left side yesterday she had some feelings of fluttering in her chest. This went away spontaneously and lasted less than 30 seconds. She reports that she has a history of esophageal spasm and had some sensation that was similar and took nitroglycerin. She reports that this incision has not completely gone away yet. She reports that she was at rest when she experienced some sharp pain that went from her midepigastrium to her midsternum and all across to her left breast. She denied any associated vomiting, shortness of breath, diaphoresis. She does report nausea. Patient is referred to the hospitalist service for chest pain. Hospital Course Hospital Course: Patient was placed on telemetry and no abnormalities were noted. Patient had negative serial troponins. She underwent nuclear cardiac stress examination on 04/03/2017 which was read as negative. During her stress test she had some chest pain and cardiology was consulted. They felt this was also noncardiac in origin. We do recommend a GI follow-up outpatient. Patient was treated for mild COPD exacerbation with improvement. She is discharged in stable condition. Physical Exam Vital Signs: Temp Pulse Resp BP Pulse Ox 98.0 F 70 16 150/56 H 96 04/03/17 15:24 04/03/17 15:24 04/03/17 15:24 04/03/17 15:24 04/03/17 15:24 Intake & Output 04/02/17 04/03/17 04/04/17 06:59 06:59 06:59 Intake Total 983 760 Output Total 1100 Balance -117 760 Weight 76.8 kg Exam: General: Awake alert and oriented x3, no acute respiratory distress HEENT: AT/NC, PERRL, EOMI, oropharynx is moist, pink, no scleral icterus, no conjunctival injection Neck: No JVD, trachea midline Chest: Clear to auscultation bilaterally, no wheezes rhonchi or rales CV: Regular rate and rhythm, normal S1 and S2, no murmur, rub, or gallop Abdomen: Soft, nontender to palpation, nondistended, active bowel sounds; no rebound, rigidity, or guarding Extremities: No cyanosis, clubbing or edema Neuro: Cranial nerves II through XII are grossly intact without focal deficits; awake alert and oriented x3 Psych: Normal mood and affect Results Laboratory Results: 04/03/17 06:00 Triglycerides 73 Cholesterol 165.54 LDL Cholesterol Direct 117 H VLDL Cholesterol 15.0 HDL Cholesterol 44 04/02/17 04/02/17 04/03/17 12:30 18:14 00:25 Creatine Kinase CK-MB (CK-2) 0.42 0.43 0.41 Troponin I < 0.012 < 0.012 < 0.012 04/03/17 06:00 Creatine Kinase < 20 L CK-MB (CK-2) Troponin I Impressions: Chest X-Ray 04/02/17 09:36 IMPRESSION: NO ACUTE RADIOGRAPHIC FINDING IN THE CHEST. NO SIGNIFICANT CHANGE FROM PRIOR STUDY. Qualifiers PATEINT BEING DISCHARGED WITH ANY OF THE FOLLOWING DIAGNOSIS?: No Plan Time Spent: Less than 30 Minutes
--- NOTE | 2017-04-03 17:33 | PDOC CONSULTATION ---
Consultation Consult Date: 04/03/17 Attending physician:: DENNIS CHOI Consult reason:: Chest pain History of Present Illness Admission Date/PCP: 04/02/17 11:42 Patient complains of: Chest pain History of Present Illness: MADELINE ALMONTE is a 71 year old female with a past medical history of diabetes mellitus, hypertension, hyperlipidemia, cervical cancer, dementia, questionable COPD who presents to the emergency department with complaints of chest pain. She reports that while she is lying on her left side yesterday she had some feelings of fluttering in her chest. This went away spontaneously and lasted less than 30 seconds. She reports that she has a history of esophageal spasm and had some sensation that was similar and took nitroglycerin. She reports that this i improved her symptoms but ncision has not completely gone away yet. She reports that she was at rest when she experienced some sharp pain that went from her midepigastrium to her midsternum and all across to her left breast. She denied any associated vomiting, shortness of breath, diaphoresis. She does report nausea. Patient is referred to the hospitalist service for chest pain. This history was reviewed and confirmed. Patient had a nuclear stress test during which she developed significant chest discomfort and subsequently needed nitroglycerin sublingual and also a GI cocktail. Because of recurrence of chest pain, I was asked to evaluate this patient. The discomfort patient had in the stress test was described as both sharp as well as squeezing feeling in the chest. There was no associated nausea vomiting or diaphoresis. Patient denied any associated shortness of breath. There was no significant radiation. EKGs were reviewed and were noted to have no significant change. Past Medical History Cardiac Medical History: Reports: Hyperlipidema, Hypertension Denies: Coronary Artery Disease, Myocardial Infarction Pulmonary Medical History: Reports: Chronic Obstructive Pulmonary Disease (COPD) , Sleep Apnea Denies: Asthma, Bronchitis, Pneumonia Neurological Medical History: Denies: Seizures Endocrine Medical History: Reports: Diabetes Mellitus Type 1, Diabetes Mellitus Type 2, Obesity Renal/ Medical History: Malignancy Medical History: Reports: Cervical Cancer GI Medical History: Reports: Diverticulitis, Gastroesophageal Reflux Disease Denies: Hepatitis, Hiatal Hernia Musculoskeltal Medical History: Reports: Arthritis - degenerative Psychiatric Medical History: Reports: Depression Hematology: Denies: Anemia, Sickle Cell Disease Past Surgical History Past Surgical History: Reports: Cholecystectomy, Hysterectomy, Orthopedic Surgery - right hip and knee, Other - Bowel resection Denies: Amputation, Mastectomy, Pacemaker Social History Information Source: Patient Lives with: Family Smoking Status: Current Every Day Smoker Cigarettes Packs Per Day: 1 Number of Years Smokin Last Time Smoked: 04/02/2017 Frequency of Alcohol Use: None Hx Recreational Drug Use: No Drugs: None Hx Prescription Drug Abuse: No - Advance Directive Resuscitation Status: Full Code Surrogate healthcare decision maker:: Patient significant live-in boyfriend. Family History Family History: Hypertension Parental Family History Reviewed: Yes Children Family History Reviewed: Yes Sibling(s) Family History Reviewed.: Yes Medication/Allergy Home Medications: Aspirin [Ecotrin 81 mg EC Tablet] 81 mg PO DAILY 04/02/17 Carvedilol [Coreg 12.5 mg Tablet] 12.5 mg PO Q12 04/02/17 Chlorthalidone [Hygroton 25 mg Tablet] 25 mg PO DAILY 04/02/17 Donepezil HCl [Aricept] 10 mg PO QPM 04/02/17 Insulin Aspart [Novolog Flexpen] 0 unit SQ .SLIDING SCALE 04/02/17 Insulin Glargine,Hum.rec.anlog [Lantus Solostar] 30 unit SQ QAM 04/02/17 Lisinopril [Prinivil 40 mg Tablet] 40 mg PO DAILY 04/02/17 Simvastatin [Zocor 20 mg Tablet] 20 mg PO QPM 04/02/17 Venlafaxine HCl [Venlafaxine HCl ER] 150 mg PO DAILY 04/02/17 Albuterol Sulfate [Ventolin Hfa] 1 - 2 puff IH Q4 PRN #1 hfa.aer.ad 04/03/17 Prednisone 10 mg PO ASDIR PRN #1 tab.ds.pk 04/03/17 Allergies/Adverse Reactions: bupropion HCl [From Wellbutrin] Allergy (Severe, Verified 04/02/17 09:25) extreme depression Iodinated Contrast- Oral and IV Dye Allergy (Mild, Verified 04/02/17 10:17) itching Review of Systems Review of Systems: Please see history of present illness and past medical history as wall. Constitutional: No fever or chills reported. Head : No recent chronic headaches, recent head injury. Eyes: No recent eye pain, diplopia, redness, discharge, acute visual changes. Ears: No recent chronic ear pain, acute hearing loss, ear discharge. Oral cavity: No recent ulcerations, bleeding, oral cavity discomfort. Neck: No recent acute neck pain reported. Hematologic: No recent easy bruising or bleeding or hematologic malignancy reported. Lymphatic: No recent lymphatic malignancy, chronic lymphadenopathy reported yet Cardiovascular system review: See history of present illness. Respiratory system review: No recent chronic cough, hemoptysis, blood clots in the lungs reported. Mild Shortness of breath on exertion Gastrointestinal system review: Negative for any recent acute or chronic abdominal pain, hematemesis, melena, recent change in bowel habits. History of gastroesophageal reflux and esophageal spasm. Genitourinary system review: No recent acute or chronic hematuria, flank pain, UTI etc. reported. Skin system review: Negative for any recent abnormal bruising, no rash, no pruritus reported. Neurologic: No prior history of strokes, mini strokes, seizure disorder. Psychologic: No history of major psychosis or major depression reported. Musculoskeletal: Minor aches and pains reported. No acute joint swelling reported. Endocrine: No recent polyuria, polydipsia, recent heat or cold intolerance. Physical Exam Vital Signs: Temp Pulse Resp BP Pulse Ox 98.0 F 70 16 150/56 H 96 04/03/17 15:24 04/03/17 15:24 04/03/17 15:24 04/03/17 15:24 04/03/17 15:24 Intake & Output 04/02/17 04/03/17 04/04/17 06:59 06:59 06:59 Intake Total 983 760 Output Total 1100 Balance -117 760 Weight 76.8 kg Exam: GENERAL: well-nourished and in no acute distress. Alert and oriented x3 HEAD: Atraumatic, normocephalic. EYES: Pupils equal round and reactive to light, extraocular movements intact, sclera anicteric, conjunctiva are normal. ENT: TMs normal, nares patent, oropharynx clear without exudates. Moist mucous membranes. No oral ulcerations or bleeding gums noted NECK: supple without lymphadenopathy. Trachea is central. No cervical or axillary lymphadenopathy noted. Carotids are 2+, JVD WNL LUNGS: Respiration seems nonlabored, no significant accessory muscle action noted. Breath sounds clear to auscultation bilaterally and equal noted. No wheezes rales or rhonchi noted. No significant dullness noted on percussion. CHEST: Palpation of the chest wall shows left-sided chest wall tenderness. No other significant abnormalities noted. 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 ABDOMEN: Soft, no significant tenderness appreciated, normoactive bowel sounds. No guarding, no rebound. No rigidity noted . No masses appreciated. EXTREMITIES: Pedal pulses are 1-2+, no calf tenderness noted. No clubbing or cyanosis.trace to 1+ pedal edema noted NEUROLOGICAL: Focused neurological exam showed no significant neurologic deficit. Normal speech, no focal weakness appreciated. PSYCH: Normal mood, normal affect. Judgment and insight within normal limits. SKIN: No significant ecchymosis, rash, ulcerations or signs of pruritus noted. MUSCULOSKELETAL EXAM: No significant joint swelling noted. Results Laboratory Results: 04/03/17 06:00 Triglycerides 73 Cholesterol 165.54 LDL Cholesterol Direct 117 H VLDL Cholesterol 15.0 HDL Cholesterol 44 04/02/17 04/02/17 04/03/17 12:30 18:14 00:25 Creatine Kinase CK-MB (CK-2) 0.42 0.43 0.41 Troponin I < 0.012 < 0.012 < 0.012 04/03/17 06:00 Creatine Kinase < 20 L CK-MB (CK-2) Troponin I EKG Comments: Sinus rhythm, nonprogression of R-wave noted anterior precordial leads. Impressions: Chest X-Ray 04/02/17 09:36 IMPRESSION: NO ACUTE RADIOGRAPHIC FINDING IN THE CHEST. NO SIGNIFICANT CHANGE FROM PRIOR STUDY. Assessment & Plan - Diagnosis (1) Chest pain Qualifiers: Chest pain type: unspecified Qualified Code(s): R07.9 - Chest pain, unspecified Is this a current diagnosis for this admission?: Yes (2) Gastroesophageal reflux disease Qualifiers: Esophagitis presence: esophagitis presence not specified Qualified Code(s) : K21.9 - Gastro-esophageal reflux disease without esophagitis Is this a current diagnosis for this admission?: Yes (3) Obstructive sleep apnea Is this a current diagnosis for this admission?: Yes (4) Obesity (BMI 30.0-34.9) Is this a current diagnosis for this admission?: Yes (5) Diabetes Qualifiers: Diabetes mellitus type: type 2 Diabetes mellitus complication status: without complication Diabetes mellitus jail insulin use: unspecified jail insulin use status Qualified Code(s): E11.9 - Type 2 diabetes mellitus without complications Is this a current diagnosis for this admission?: Yes - Notes Notes: Chest pain: This was evaluated with a nuclear stress test. Nuclear stress test was negative for any pharmacologic stress-induced ischemia. Chest pain by my exam is most likely related to gastroesophageal reflux with spasm with overlying musculoskeletal and also anxiety disorder. Patient was reassured. Nuclear stress test results were discussed in detail with her. Gastroesophageal reflux: Patient will benefit from weight loss, modification of diet, and also compliance with CPAP therapy. Sleep apnea syndrome: Patient describes obstructive sleep apnea syndrome. It does not seem to be followed on a regular basis. I have offered my services. Obesity: Patient encouraged in weight loss. Diabetes: Patient encouraged in weight loss, carbohydrate restriction, regular exercise program. - Time Time Spent with patient: CODE STATUS was discussed, patient remains full code. Surrogate decision-maker unchanged. Multiple medical problems were addressed. More than 50% of the time spent coordinating care, discussing management plans with involved caregivers. Management plans discussed with involved personnels. Medical decision making was of moderate to high complexity, patient's has multiple comorbidities. Time Spent: 30 to 50 Minutes Medications reviewed and adjusted accordingly: Yes
[2017-04-03 18:05] VITALS: BP 128/98
--- NOTE | 2017-04-04 06:26 | EKG REPORT ---
SEVERITY:- NORMAL ECG - SINUS RHYTHM : Confirmed by: Jaye Tello MD 04-Apr-2017 06:24:57
--- NOTE | 2017-04-04 06:26 | EKG REPORT ---
SEVERITY:- ABNORMAL ECG - SINUS RHYTHM FIRST DEGREE AV BLOCK LOW VOLTAGE IN FRONTAL LEADS : Confirmed by: Jaye Tello MD 04-Apr-2017 06:24:53
== END 2017-04-03 18:10 | disposition home or self-care (01) ==
LOC: ER 09:14 → EH 11:42 → UNDOADMOB 11:46 → EH 11:46 → 4S 13:30
PROC: 3E0F7GC Introduction of Other Therapeutic Substance into Respiratory Tract, Via Natural or Artificial Opening (ICD-10-PCS; principal; 2017-04-02)
DX: E10.9 Type 1 diabetes mellitus without complications (principal); J44.1 Chronic obstructive pulmonary disease with (acute) exacerbation; F17.219 Nicotine dependence, cigarettes, with unspecified nicotine-induced disorders; E66.9 Obesity, unspecified; K21.9 Gastro-esophageal reflux disease without esophagitis; F03.90 Unspecified dementia, unspecified severity, without behavioral disturbance, psychotic disturbance, mood disturbance, and anxiety; I10 Essential (primary) hypertension; E78.5 Hyperlipidemia, unspecified; R11.0 Nausea; I25.10 Atherosclerotic heart disease of native coronary artery without angina pectoris; Z79.899 Other long term (current) drug therapy; Z79.82 Long term (current) use of aspirin; Z85.41 Personal history of malignant neoplasm of cervix uteri; Z90.49 Acquired absence of other specified parts of digestive tract; Z90.710 Acquired absence of both cervix and uterus; Z82.49 Family history of ischemic heart disease and other diseases of the circulatory system; G47.33 Obstructive sleep apnea (adult) (pediatric); K22.4 Dyskinesia of esophagus; R68.83 Chills (without fever); I25.2 Old myocardial infarction; Z80.9 Family history of malignant neoplasm, unspecified; Z68.33 Body mass index [BMI] 33.0-33.9, adult
CPT/HCPCS: 93005 ×2; 99285; 36415 ×2; 82553 ×2; 82962 ×2; 82550 ×2; 83735; 84443; 85025; 80053; 84484 ×2; 83036; 80061; 93017; 71010; 78452; 93010 ×2; 94640 ×2; G0378 ×3; A9500; A9270 ×20; J2785; J3490 ×3; J2920 ×2; J2270; J0280; Q9969; J1815; J7620

== ENCOUNTER 2018-08-17 18:05 | Emergency (ER) | payer MEDICARE, MEDICAID ==
[2018-08-17 18:41] LABS: ABSOLUTE BASOPHILS # (AUTO) 0.1 10^3/uL (0.0-0.2); ABSOLUTE EOSINOPHILS # (AUTO) 0.2 10^3/uL (0.0-0.6); ABSOLUTE LYMPHOCYTES (AUTO) 3.8 10^3/uL (0.5-4.7); ABSOLUTE MONOCYTES (AUTO) 0.7 10^3/uL (0.1-1.4); ABSOLUTE NEUT (AUTO) 5.6 10^3/uL (1.7-8.2); BASOPHILS % (AUTO) 0.7 % (0-2); EOSINOPHILS % (AUTO) 1.8 % (0-6); HEMATOCRIT 49.9 % (36.0-47.0); HEMOGLOBIN 17.3 g/dL (12.0-15.5); LYMPHOCYTES % (AUTO) 36.6 % (13-45); MEAN CORPUSCULAR HEMOGLOBIN 29.9 pg (27.0-33.4); MEAN CORPUSCULAR HGB CONC 34.8 g/dL (32.0-36.0); MEAN CORPUSCULAR VOLUME 86 fl (80-97); MONOCYTES % (AUTO) 6.5 % (3-13); PLATELET COUNT 302 10^3/uL (150-450); SEGMENTED NEUTROPHILS % (AUTO) 54.4 % (42-78); TOTAL CELLS COUNTED % (AUTO) 100 %; WHITE BLOOD COUNT 10.4 10^3/uL (4.0-10.5)
[2018-08-17 18:44] LABS: ALANINE AMINOTRANSFERASE 21 U/L (9-52); ALKALINE PHOSPHATASE 172 U/L (38-126); ANION GAP 12 (5-19); ASPARTATE AMINO TRANSFERASE 26 U/L (14-36); BILIRUBIN,DIRECT 0.3 mg/dL (0.0-0.4); BILIRUBIN,TOTAL 0.5 mg/dL (0.2-1.3); BLOOD UREA NITROGEN 17 mg/dL (7-20); CALCIUM 10.2 mg/dL (8.4-10.2); CARBON DIOXIDE 29 mmol/L (22-30); CHLORIDE 100 mmol/L (98-107); CREATINE KINASE 43 U/L (30-135); GLUCOSE 283 mg/dL (75-110); POTASSIUM 4.2 mmol/L (3.6-5.0); SODIUM 140.5 mmol/L (137-145); TOTAL PROTEIN 7.7 g/dL (6.3-8.2)
[2018-08-17] MEDS ORDERED: ADENOSINE INJ/PF 6 MG/2 ML SDV IV ONE ×3 (18:44→18:48)
[2018-08-17 18:56] LABS: TROPONIN I < 0.012 ng/mL
[2018-08-17] MEDS ORDERED: ONDANSETRON HCL INJ/PF 4 MG/2 ML SDV IV ONE (19:05)
--- NOTE | 2018-08-17 19:05 | ER Document Report ---
ED General - General Chief Complaint: Palpitations Stated Complaint: PALPITATIONS Time Seen by Provider: 08/17/18 18:31 Primary Care Provider: ALEXANDER HEMPHILL MD [ACTIVE STAFF] - Follow up in 3-5 days Notes: Patient is a 72-year-old female with a past medical history of COPD, atrial fibrillation, hypertension, presents complaining of several hours of palpitations and "an abnormal feeling in the center of my chest". Patient states that this feels similar to when she had atrial fibrillation with rapid ventricular response in the past. She has not missed any medications today including her normal metoprolol home dosing of 12.5 mg twice daily. She states that she tried to sit on her front porch and enjoy the fresh air and tried to distract herself by playing solitaire on her computer but that this did not help her palpitations. No obvious triggering factor or anything that worsens her symptoms after onset. She denies vomiting but states that she does feel nauseated. She has not contacted her primary care physician regarding today's concerns. Symptoms started gradually, have remained constant since onset. TRAVEL OUTSIDE OF THE [place] IN LAST 30 DAYS: No - Related Data Allergies/Adverse Reactions: bupropion HCl [From Wellbutrin] Allergy (Severe, Verified 04/02/17 09:25) extreme depression Iodinated Contrast- Oral and IV Dye Allergy (Mild, Verified 04/02/17 10:17) itching Past Medical History - General Information source: Patient - Social History Smoking Status: Current Every Day Smoker Frequency of alcohol use: None Drug Abuse: None Lives with: Spouse/Significant other Family History: Hypertension - Past Medical History Cardiac Medical History: Reports: Hx Hypercholesterolemia, Hx Hypertension Denies: Hx Coronary Artery Disease, Hx Heart Attack Pulmonary Medical History: Reports: Hx COPD, Hx Sleep Apnea Denies: Hx Asthma, Hx Bronchitis, Hx Pneumonia Neurological Medical History: Denies: Hx Cerebrovascular Accident, Hx Seizures Endocrine Medical History: Reports: Hx Diabetes Mellitus Type 1, Hx Diabetes Mellitus Type 2 Renal/ Medical History: Denies: Hx Peritoneal Dialysis Malignancy Medical History: Reports: Hx Cervical Cancer GI Medical History: Reports: Hx Diverticulitis, Hx Gastroesophageal Reflux Disease. Denies: Hx Hepatitis, Hx Hiatal Hernia, Hx Ulcer Musculoskeletal Medical History: Reports Hx Arthritis - degenerative, Reports Hx Musculoskeletal Trauma Psychiatric Medical History: Reports: Hx Depression Infectious Medical History: Denies: Hx Hepatitis Past Surgical History: Reports: Hx Cholecystectomy, Hx Hysterectomy, Hx Orthopedic Surgery - right hip and knee, Other - Bowel resection. Denies: Hx Mastectomy, Hx Open Heart Surgery, Hx Pacemaker - Immunizations Immunizations up to date: Yes Hx Diphtheria, Pertussis, Tetanus Vaccination: Yes Hx Pneumococcal Vaccination: 06/27/10 Review of Systems - Review of Systems Notes: Constitutional: Negative for fever. HENT: Negative for sore throat. Eyes: Negative for visual changes. Cardiovascular: Positive for palpitations and "abnormal sensation in my chest" Respiratory: Negative for shortness of breath. Gastrointestinal: Negative for abdominal pain, positive for nausea Genitourinary: Negative for dysuria. Musculoskeletal: Negative for back pain. Skin: Negative for rash. Neurological: Negative for headaches, weakness or numbness. 10 point ROS negative except as marked above and in HPI. Physical Exam - Vital signs Vitals: Temp Resp BP Pulse Ox 98.8 F 23 H 141/94 H 95 08/17/18 18:26 08/17/18 18:26 08/17/18 18:26 08/17/18 18:26 Interpretation: Hypertensive, Tachycardic, Tachypneic Notes: PHYSICAL EXAMINATION: GENERAL: Appears uncomfortable, somewhat diaphoretic. HEAD: Atraumatic, normocephalic. EYES: Pupils equal round and reactive to light, extraocular movements intact, sclera anicteric, conjunctiva are normal. ENT: nares patent, oropharynx clear without exudates. Moderately dry mucous membranes. NECK: Normal range of motion, supple without lymphadenopathy LUNGS: Breath sounds clear to auscultation bilaterally and equal. Moderate tachypnea. HEART: Regular tachycardia without murmurs ABDOMEN: Soft, nontender, normoactive bowel sounds. No guarding, no rebound. No masses appreciated. EXTREMITIES: Normal range of motion, no pitting or edema. No cyanosis. NEUROLOGICAL: No focal neurological deficits. Moves all extremities spontaneously and on command. PSYCH: Moderately anxious SKIN: Warm, Dry, normal turgor, no rashes or lesions noted. Course - Re-evaluation Re-evalutation: 08/17/18 19:00 Documentation is delayed as I been at this patient's bedside continuously for the past 25 minutes. In summary the patient's initial EKGs were brought to me concerning for supraventricular tachycardia although being read as sinus tachycardia by the ECG machine. On examination of the patient on telemetry it was clear that the patient was remaining in SVT. She was otherwise well in appearance, vitals otherwise within acceptable limits. I did attempt a modified Valsalva maneuver with the patient on 2 separate occasions without any response. At that point crash cart was taken to the outside of the room. Defibrillator pads were placed on the patient in an AP position. Patient was instructed that we will be proceeding with adenosine for cardioversion and that she was in supraventricular tachycardia. After 6 mill grams of adenosine the patient did convert to sinus rhythm. She had a total pause of 12 seconds. Patient tolerated the procedure well. Patient is currently remaining in sinus tachycardia, current heart rate of 96. Patient had near immediate resolution of all symptoms upon cardioversion. Laboratories are unremarkable including negative troponin. Will not cycle troponins as I suspect patient's symptoms of palpitations and discomfort were related to supraventricular tachycardia. Will continue to monitor the patient to ensure that she remains in normal sinus rhythm and continues to be asymptomatic. 08/17/18 20:21 I reassessed the patient on multiple occasions. She remains asymptomatic, feels much better. No longer diaphoretic. At this time will discharge with return precautions and follow-up recommendations. Verbal discharge instructions given a the bedside and opportunity for questions given. Medication warnings reviewed. Patient is in agreement with this plan and has verbalized understanding of re turn precautions and the need for primary care follow-up in the next 24-72 hours. - Vital Signs Vital signs: Temp Pulse Resp BP Pulse Ox 98.8 F 13 144/86 H 98 08/17/18 18:26 08/17/18 19:30 08/17/18 19:30 08/17/18 19:30 - Laboratory Result Diagrams: 08/17/18 18:00 08/17/18 18:00 Laboratory results interpreted by me: 08/17/18 08/17/18 18:00 18:00 RBC 5.80 H Hgb 17.3 H Hct 49.9 H Glucose 283 H Alkaline Phosphatase 172 H - EKG Interpretation by Me Additional EKG results interpreted by me: 08/17/18 19:04 EKG 1: Superventricular tachycardia, rate 142. No ST elevations or depressions. QTC 474. 08/17/18 20:22 EKG 2: Sinus rhythm, rate 92. No ST elevations or depressions. QTC 470 Critical Care Note - Critical Care Note Total time excluding time spent on procedures (mins): 36 Comments: Critical care time spent obtaining history from patient or surrogate, development of treatment plan with patient or surrogate, evaluation of patient's response to treatment, examination of patient, ordering and performing treatments and interventions, ordering and review of laboratory studies, re-evaluation of patient's condition, and review of old charts Discharge - Discharge Clinical Impression: Supraventricular tachycardia, Palpitations Condition: Stable Disposition: HOME, SELF-CARE Additional Instructions: You were seen today for having palpitations. The rhythm that you were in today is called supraventricular tachycardia often referred to as SVT. This is not a dangerous rhythm but can become problematic if you stay in it for too long. If you develop recurrent palpitations, you should bear down like you are trying to have a bowel movement as hard as you can. Alternatively, you could splash ice water in your face or get into a very cold shower. These maneuvers can sometimes break you out of this rhythm. If this does not work, please come to the emergency department immediately. You should follow-up with cardiology regarding today's visit. Please return to the emergency department immediately if you develop chest pain, shortness of breath, pass out, or have any other symptoms that are worrisome to you. Referrals: ALEXANDER HEMPHILL MD [ACTIVE STAFF] - Follow up in 3-5 days
[2018-08-17] MEDS ORDERED: NORMAL SALINE 1000 ML 500 ML IV ONE (19:06)
--- NOTE | 2018-08-17 19:22 | RADIOLOGY REPORT (SQ) ---
EXAM DESCRIPTION: CHEST SINGLE VIEW COMPLETED DATE/TIME: 08/17/2018 7:09 pm REASON FOR STUDY: CHEST PAIN COMPARISON: 04/02/2017 EXAM PARAMETERS: NUMBER OF VIEWS: One view. TECHNIQUE: Single frontal radiographic view of the chest acquired. RADIATION DOSE: NA LIMITATIONS: None. FINDINGS: LUNGS AND PLEURA: No opacities, masses or pneumothorax. No pleural effusion. MEDIASTINUM AND HILAR STRUCTURES: No masses. Contour normal. HEART AND VASCULAR STRUCTURES: Heart normal in size. Normal vasculature. BONES: No acute findings. HARDWARE: None in the chest. OTHER: No other significant finding. IMPRESSION: NO ACUTE RADIOGRAPHIC FINDING IN THE CHEST. TECHNICAL DOCUMENTATION: JOB ID: [id number] [employer]- All Rights Reserved Reading location - IP/workstation name: [email or web address]
[2018-08-17 20:52] VITALS: BP 134/80
--- NOTE | 2018-08-18 07:40 | EKG REPORT ---
SEVERITY:- ABNORMAL ECG - SINUS RHYTHM FIRST DEGREE AV BLOCK BORDERLINE RIGHT AXIS DEVIATION MINIMAL ST ELEVATION, INFERIOR LEADS : Confirmed by: Parveen Hyde MD 18-Aug-2018 07:39:43
--- NOTE | 2018-08-18 07:40 | EKG REPORT ---
SEVERITY:- OTHERWISE NORMAL ECG - SINUS TACHYCARDIA RIGHT AXIS DEVIATION : Confirmed by: Parveen Hyde MD 18-Aug-2018 07:40:08
--- NOTE | 2018-08-18 07:42 | EKG REPORT ---
SEVERITY:- OTHERWISE NORMAL ECG - SINUS TACHYCARDIA RIGHT AXIS DEVIATION : Confirmed by: Parveen Hyde MD 18-Aug-2018 07:41:36
== END 2018-08-17 20:52 | disposition home or self-care (01) ==
LOC: ER 18:05
DX: I47.1 Supraventricular tachycardia (principal); R00.2 Palpitations; R11.0 Nausea; J44.9 Chronic obstructive pulmonary disease, unspecified; I48.91 Unspecified atrial fibrillation; I10 Essential (primary) hypertension; E11.9 Type 2 diabetes mellitus without complications
CPT/HCPCS: 93005; 99291; 96374; 96375; 36415; 82553; 82550; 85025; 80053; 84484; 71045; 93010; J2405; J7030; J0153

== ENCOUNTER 2019-05-18 14:28 | Emergency (ER) | payer MEDICARE, MEDICAID ==
[2019-05-18] MEDS ORDERED: NORMAL SALINE 1000 ML 1,000 ML IV ONE (15:06)
[2019-05-18] MEDS ORDERED: ONDANSETRON HCL INJ/PF 4 MG/2 ML SDV IV ONE (15:06)
--- NOTE | 2019-05-18 15:06 | ER Document Report ---
ED Medical Screen (RME) - General Chief Complaint: Blood Pressure Problem Stated Complaint: BLOOD PRESSURE PROBLEMS Time Seen by Provider: 05/18/19 14:55 TRAVEL OUTSIDE OF THE [place] IN LAST 30 DAYS: No - HPI Notes: 05/18/19 15:02 Patient is a 73-year-old female with a history of COPD, atrial fibrillation (on aspirin daily), hypertension, diabetes who presents complaining of nausea and vomiting yesterday with continued nausea through today, feeling dehydrated, feeling dizzy. Pt has been having intermittent b/l lower abdominal pains. Symptoms have been ongoing for the past couple days overall. She is urinating normally and having normal bowel movements although it is diarrhea which is not uncommon for her. Patient states that she did have a chest x-ray earlier this week that showed possible nodule in her lung and had a CT scan yesterday with an outside facility, but does not know the result. She is also been out of her clonidine for her blood pressure over the past couple days. Denies fever, headache, chest pain, dyspnea at this time. I have treated and performed a rapid initial assessment of this patient. A comprehensive ED assessment and evaluation of the patient, analysis of test results and completion of medical decision making process will be conducted by additional ED providers. PHYSICAL EXAMINATION: GENERAL: Well-appearing, well-nourished and in no acute distress. A&Ox4. Answers questions appropriately. Lungs: CTAB Heart: RRR - Related Data Allergies/Adverse Reactions: bupropion HCl [From Wellbutrin] Allergy (Severe, Verified 05/18/19 14:59) extreme depression Iodinated Contrast Media Allergy (Mild, Verified 05/18/19 14:59) itching Home Medications: Lisinopril. clonidine Past Medical History - Past Medical History Cardiac Medical History: Reports: Hx Atrial Fibrillation, Hx Hypercholesterolemia, Hx Hypertension Denies: Hx Coronary Artery Disease, Hx Heart Attack Pulmonary Medical History: Reports: Hx COPD, Hx Sleep Apnea Denies: Hx Asthma, Hx Bronchitis, Hx Pneumonia Neurological Medical History: Denies: Hx Cerebrovascular Accident, Hx Seizures Endocrine Medical History: Reports: Hx Diabetes Mellitus Type 1, Hx Diabetes Mellitus Type 2 Renal/ Medical History: Denies: Hx Peritoneal Dialysis Malignancy Medical History: Reports: Hx Cervical Cancer GI Medical History: Reports: Hx Diverticulitis, Hx Gastroesophageal Reflux Disease. Denies: Hx Hepatitis, Hx Hiatal Hernia, Hx Ulcer Musculoskeltal Medical History: Reports Hx Arthritis - degenerative, Reports Hx Musculoskeletal Trauma Psychiatric Medical History: Reports: Hx Depression Infectious Medical History: Denies: Hx Hepatitis Past Surgical History: Reports: Hx Cholecystectomy, Hx Hysterectomy, Hx Orthopedic Surgery - right hip and knee, Other - Bowel resection. Denies: Hx Mastectomy, Hx Open Heart Surgery, Hx Pacemaker - Immunizations Immunizations up to date: Yes Hx Diphtheria, Pertussis, Tetanus Vaccination: Yes Physical Exam - Vital signs Vitals: Temp Pulse Resp BP Pulse Ox 98.3 F 88 18 150/65 H 96 05/18/19 14:35 05/18/19 14:35 05/18/19 14:35 05/18/19 14:35 05/18/19 14:35 Course - Vital Signs Vital signs: Temp Pulse Resp BP Pulse Ox 98.3 F 88 18 150/65 H 96 05/18/19 14:35 05/18/19 14:35 05/18/19 14:35 05/18/19 14:35 05/18/19 14:35
[2019-05-18 15:49] LABS: APPEARANCE,URINE CLEAR; BILIRUBIN,URINE NEGATIVE (NEGATIVE); COLOR,URINE YELLOW; GLUCOSE, URINE >=500 mg/dL (NEGATIVE); KETONES,URINE NEGATIVE (NEGATIVE); PROTEIN,URINE NEGATIVE (NEGATIVE); URINE SPECIFIC GRAVITY 1.026; UROBILINOGEN,URINE NEGATIVE mg/dL (<2.0)
[2019-05-18 15:51] LABS: ABSOLUTE EOSINOPHILS # (AUTO) 0.1 10^3/uL (0.0-0.6); ABSOLUTE LYMPHOCYTES (AUTO) 2.5 10^3/uL (0.5-4.7); ABSOLUTE MONOCYTES (AUTO) 0.5 10^3/uL (0.1-1.4); ABSOLUTE NEUT (AUTO) 5.5 10^3/uL (1.7-8.2); BASOPHILS % (AUTO) 0.6 % (0-2); EOSINOPHILS % (AUTO) 1.2 % (0-6); HEMOGLOBIN 16.9 g/dL (12.0-15.5); LYMPHOCYTES % (AUTO) 28.6 % (13-45); MEAN CORPUSCULAR HEMOGLOBIN 29.6 pg (27.0-33.4); MEAN CORPUSCULAR HGB CONC 34.4 g/dL (32.0-36.0); MEAN CORPUSCULAR VOLUME 86 fl (80-97); MONOCYTES % (AUTO) 5.8 % (3-13); PLATELET COUNT 295 10^3/uL (150-450); RED BLOOD COUNT 5.69 10^6/uL (3.72-5.28); RED CELL DISTRIBUTION WIDTH 13.2 % (11.5-14.0); SEGMENTED NEUTROPHILS % (AUTO) 63.8 % (42-78); TOTAL CELLS COUNTED % (AUTO) 100 %; WHITE BLOOD COUNT 8.6 10^3/uL (4.0-10.5)
--- NOTE | 2019-05-18 15:58 | RADIOLOGY REPORT (SQ) ---
EXAM DESCRIPTION: CHEST 2 VIEWS COMPLETED DATE/TIME: 05/18/2019 3:41 pm REASON FOR STUDY: dizziness, DM, n/v COMPARISON: AP view of the chest from 08/17/2018. EXAM PARAMETERS: NUMBER OF VIEWS: two views TECHNIQUE: Digital Frontal and Lateral radiographic views of the chest acquired. RADIATION DOSE: NA LIMITATIONS: none FINDINGS: LUNGS AND PLEURA: Findings of COPD including flattening of the hemidiaphragms and widening of the AP diameter of the thorax on the lateral view. There is no consolidation, pleural effusion o r pneumothorax. MEDIASTINUM AND HILAR STRUCTURES: No mediastinal or hilar contour abnormality. HEART AND VASCULAR STRUCTURES: Stable cardiac silhouette. The pulmonary vasculature is within normal limits. BONES: No acute findings. HARDWARE: None in the chest. OTHER: No other finding. IMPRESSION: COPD without a superimposed acute cardiopulmonary process. TECHNICAL DOCUMENTATION: JOB ID: [id number] [employer]- All Rights Reserved Reading location - IP/workstation name: [email or web address]
[2019-05-18 16:03] LABS: ALBUMIN 4.7 g/dL (3.5-5.0); ALKALINE PHOSPHATASE 93 U/L (38-126); ANION GAP 13 (5-19); ASPARTATE AMINO TRANSFERASE 15 U/L (14-36); BILIRUBIN,DIRECT 0.2 mg/dL (0.0-0.4); BILIRUBIN,TOTAL 0.6 mg/dL (0.2-1.3); BLOOD UREA NITROGEN 19 mg/dL (7-20); CARBON DIOXIDE 25 mmol/L (22-30); CHLORIDE 106 mmol/L (98-107); GLUCOSE 146 mg/dL (75-110); POTASSIUM 4.1 mmol/L (3.6-5.0); TOTAL PROTEIN 7.7 g/dL (6.3-8.2)
--- NOTE | 2019-05-18 18:31 | EKG REPORT ---
SEVERITY:- ABNORMAL ECG - SINUS OR ECTOPIC ATRIAL RHYTHM CONSIDER LEFT VENTRICULAR HYPERTROPHY : Confirmed by: Parveen Hyde MD 18-May-2019 18:30:42
--- NOTE | 2019-05-18 18:49 | ER Document Report ---
ED General - General Chief Complaint: Blood Pressure Problem Stated Complaint: BLOOD PRESSURE PROBLEMS Time Seen by Provider: 05/18/19 14:55 Mode of Arrival: Ambulatory Information source: Patient Notes: 73-year-old woman presents to the emergency department with a complaint of elevated blood pressures. Currently her systolic blood pressure was greater than 200 this morning, she took lisinopril 40 mg EMS was called she was brought to the emergency department for further evaluation and treatment. Patient denies chest pain, shortness of breath, or neurologic symptoms. TRAVEL OUTSIDE OF THE [place] IN LAST 30 DAYS: No - Related Data Allergies/Adverse Reactions: bupropion HCl [From Wellbutrin] Allergy (Severe, Verified 05/18/19 14:59) extreme depression Iodinated Contrast Media Allergy (Mild, Verified 05/18/19 14:59) itching Home Medications: Lisinopril. clonidine Past Medical History - Social History Smoking Status: Current Every Day Smoker Family History: Hypertension Patient has suicidal ideation: No Patient has homicidal ideation: No - Past Medical History Cardiac Medical History: Reports: Hx Atrial Fibrillation, Hx Hypercholesterolemia, Hx Hypertension Denies: Hx Coronary Artery Disease, Hx Heart Attack Pulmonary Medical History: Reports: Hx COPD, Hx Sleep Apnea Denies: Hx Asthma, Hx Bronchitis, Hx Pneumonia Neurological Medical History: Denies: Hx Cerebrovascular Accident, Hx Seizures Endocrine Medical History: Reports: Hx Diabetes Mellitus Type 1, Hx Diabetes Mellitus Type 2 Renal/ Medical History: Denies: Hx Peritoneal Dialysis Malignancy Medical History: Reports: Hx Cervical Cancer GI Medical History: Reports: Hx Diverticulitis, Hx Gastroesophageal Reflux Disease. Denies: Hx Hepatitis, Hx Hiatal Hernia, Hx Ulcer Musculoskeletal Medical History: Reports Hx Arthritis - degenerative, Reports Hx Musculoskeletal Trauma Psychiatric Medical History: Reports: Hx Depression Infectious Medical History: Denies: Hx Hepatitis Past Surgical History: Reports: Hx Abdominal Surgery - bowel resection, Hx Cholecystectomy, Hx Hysterectomy, Hx Orthopedic Surgery - right hip replacement, R knee replacement, Other - Bowel resection. Denies: Hx Mastectomy, Hx Open Heart Surgery, Hx Pacemaker - Immunizations Immunizations up to date: Yes Hx Diphtheria, Pertussis, Tetanus Vaccination: Yes Hx Pneumococcal Vaccination: 06/27/10 Review of Systems - Review of Systems Notes: Constitutional: Negative for fever. Cardiovascular: Negative for chest pain. Respiratory: Negative for shortness of breath. Gastrointestinal: Negative for vomiting Musculoskeletal: Negative for back pain. Skin: Negative for rash. Neurological: Negative for weakness or numbness. 10 point ROS negative except as marked above and in HPI. Physical Exam - Vital signs Vitals: Temp Pulse Resp BP Pulse Ox 98.3 F 88 18 150/65 H 96 05/18/19 14:35 05/18/19 14:35 05/18/19 14:35 05/18/19 14:35 05/18/19 14:35 - Notes Notes: PHYSICAL EXAMINATION: GENERAL: Well-appearing, well-nourished 73-year-old female in no acute distress HEAD: Atraumatic, normocephalic. EYES: Pupils equal round and reactive to light, extraocular movements intact, sclera anicteric, conjunctiva are normal. ENT: nares patent, oropharynx clear without exudates. Moist mucous membranes. NECK: Normal range of motion, supple without lymphadenopathy LUNGS: Breath sounds clear to auscultation bilaterally and equal. No wheezes rales or rhonchi. HEART: Regular rate and rhythm without murmurs ABDOMEN: Soft, nontender, normoactive bowel sounds. No guarding, no rebound. No masses appreciated. EXTREMITIES: Normal range of motion, no pitting or edema. No cyanosis. NEUROLOGICAL: No focal neurological deficits. Moves all extremities spontaneously and on command. PSYCH: Normal mood, normal affect. SKIN: Warm, Dry, normal turgor, no rashes or lesions noted. Course - Re-evaluation Re-evalutation: 05/18/19 18:43 Patient presented with elevated blood pressure and the blood pressure has gradually come down to a tolerable range. No intervention has been performed in the emergency department. Patient had labs, EKG, chest x-ray. - Vital Signs Vital signs: Temp Pulse Resp BP Pulse Ox 98.3 F 88 14 153/64 H 94 05/18/19 14:35 05/18/19 14:35 05/18/19 18:02 05/18/19 18:02 05/18/19 18:02 - Laboratory Result Diagrams: 05/18/19 15:29 05/18/19 15:29 Laboratory results interpreted by me: 05/18/19 05/18/19 05/18/19 15:10 15:29 15:29 RBC 5.69 H Hgb 16.9 H Hct 49.0 H Est GFR (MDRD) Non-Af 57 L Glucose 146 H Urine Glucose (UA) >=500 H 05/18/19 18:44 I have reviewed laboratory data and used this information for the treatment decisions regarding the patient. - Diagnostic Test Radiology reviewed: Pending, Image reviewed - COPD, no superimposed CHF or pleural effusion., Reports reviewed - EKG Interpretation by Me EKG shows normal: Sinus rhythm Voltage: Consistant with LVH Discharge - Discharge Clinical Impression: Poorly-controlled hypertension Condition: Good Disposition: HOME, SELF-CARE Additional Instructions: Please continue your blood pressure medications as prescribed Please follow-up with your primary care doctor as needed. Forms: Elevated Blood Pressure
[2019-05-18 19:49] VITALS: BP 165/60
== END 2019-05-18 19:49 | disposition home or self-care (01) ==
LOC: ER 14:28
DX: I10 Essential (primary) hypertension (principal); F17.200 Nicotine dependence, unspecified, uncomplicated; J44.9 Chronic obstructive pulmonary disease, unspecified; E11.9 Type 2 diabetes mellitus without complications; Z79.899 Other long term (current) drug therapy; Z88.8 Allergy status to other drugs, medicaments and biological substances; Z91.041 Radiographic dye allergy status
CPT/HCPCS: 93005; 99284; 96374; 36415; 83690; 85025; 80053; 81001; 84484; 71046; 93010; J2405; J7030

== ENCOUNTER 2020-03-24 17:57 | Emergency (ER) | payer MEDICARE, MEDICAID ==
[2020-03-24 18:47] LABS: ABSOLUTE BASOPHILS # (AUTO) 0.1 10^3/uL (0.0-0.2); ABSOLUTE EOSINOPHILS # (AUTO) 0.1 10^3/uL (0.0-0.6); ABSOLUTE LYMPHOCYTES (AUTO) 1.7 10^3/uL (0.5-4.7); ABSOLUTE MONOCYTES (AUTO) 0.5 10^3/uL (0.1-1.4); ABSOLUTE NEUT (AUTO) 3.9 10^3/uL (1.7-8.2); EOSINOPHILS % (AUTO) 1.4 % (0-6); HEMATOCRIT 45.2 % (36.0-47.0); HEMOGLOBIN 15.7 g/dL (12.0-15.5); MEAN CORPUSCULAR HEMOGLOBIN 29.6 pg (27.0-33.4); MEAN CORPUSCULAR HGB CONC 34.7 g/dL (32.0-36.0); MEAN CORPUSCULAR VOLUME 85 fl (80-97); MONOCYTES % (AUTO) 7.9 % (3-13); PLATELET COUNT 206 10^3/uL (150-450); RED BLOOD COUNT 5.29 10^6/uL (3.72-5.28); RED CELL DISTRIBUTION WIDTH 13.2 % (11.5-14.0); SEGMENTED NEUTROPHILS % (AUTO) 62.7 % (42-78); TOTAL CELLS COUNTED % (AUTO) 100 %; WHITE BLOOD COUNT 6.2 10^3/uL (4.0-10.5)
[2020-03-24 19:07] LABS: ALBUMIN 4.3 g/dL (3.5-5.0); ALKALINE PHOSPHATASE 120 U/L (38-126); ANION GAP 11 (5-19); ASPARTATE AMINO TRANSFERASE 18 U/L (14-36); BILIRUBIN,DIRECT 0.3 mg/dL (0.0-0.4); BILIRUBIN,TOTAL 0.4 mg/dL (0.2-1.3); BLOOD UREA NITROGEN 21 mg/dL (7-20); CALCIUM 9.3 mg/dL (8.4-10.2); CARBON DIOXIDE 30 mmol/L (22-30); CHLORIDE 100 mmol/L (98-107); GLUCOSE 242 mg/dL (75-110); POTASSIUM 4.4 mmol/L (3.6-5.0); TOTAL PROTEIN 6.7 g/dL (6.3-8.2)
[2020-03-24] MEDS ORDERED: KETOROLAC TROMETHAMINE INJ/PF 30 MG/1 ML SDV IV ONE (20:05)
[2020-03-24] MEDS ORDERED: METHOCARBAMOL 500 MG TABLET PO ONE (20:05)
--- NOTE | 2020-03-24 20:28 | ER Document Report ---
ED General - General Chief Complaint: Back Pain Stated Complaint: BACK PAIN Time Seen by Provider: 03/24/20 19:45 Primary Care Provider: LUIS MARTÍNEZ MD [Primary Care Provider] - Follow up as needed TRAVEL OUTSIDE OF THE [place] IN LAST 30 DAYS: No - HPI Notes: 74-year-old female presents with back pain. Patient states that last Tuesday she underwent L3 kyphoplasty, described as cement being injected into her spine, this was done in [place]. She reports she has been doing well since surgery. She has had some left-sided pain, described as burning but overall tolerable for the past few days. She really has not been taking any medication. She states that she had the typical pain at this morning. She laid down for a nap between 2 15-3 30 today, rolled over onto her right side, developed sudden onset of a deep, stabbing, sharp pain to her left side. Does not radiate. Currently feels like a burning sensation. She received fentanyl via EMS which relieved h er pain, though is now starting to come back. She denies abdominal pain, nausea/vomiting/diarrhea, or dysuria. She states that she has been ambulatory. Denies numbness or weakness to her legs. She states that she was told recently that she has a cyst on her kidney. Additionally states that she has been wearing her back brace and concerned that this is causing some of her pain as well. She has follow-up with neurosurgery tomorrow. - Related Data Allergies/Adverse Reactions: bupropion HCl [From Wellbutrin] Allergy (Severe, Verified 03/24/20 18:23) extreme depression Iodinated Contrast Media Allergy (Mild, Verified 03/24/20 18:23) itching Past Medical History - General Information source: Patient - Social History Smoking Status: Current Every Day Smoker Family History: Hypertension Patient has homicidal ideation: No - Past Medical History Cardiac Medical History: Reports: Hx Atrial Fibrillation, Hx Hypercholesterolemia, Hx Hypertension Denies: Hx Coronary Artery Disease, Hx Heart Attack Pulmonary Medical History: Reports: Hx COPD, Hx Sleep Apnea Denies: Hx Asthma, Hx Bronchitis, Hx Pneumonia Neurological Medical History: Denies: Hx Cerebrovascular Accident, Hx Seizures Endocrine Medical History: Reports: Hx Diabetes Mellitus Type 1, Hx Diabetes Mellitus Type 2 Renal/ Medical History: Denies: Hx Peritoneal Dialysis Malignancy Medical History: Reports: Hx Cervical Cancer GI Medical History: Reports: Hx Diverticulitis, Hx Gastroesophageal Reflux Disease. Denies: Hx Hepatitis, Hx Hiatal Hernia, Hx Ulcer Musculoskeletal Medical History: Reports Hx Arthritis - degenerative, Reports Hx Musculoskeletal Trauma Psychiatric Medical History: Reports: Hx Depression Infectious Medical History: Denies: Hx Hepatitis Past Surgical History: Reports: Hx Abdominal Surgery - bowel resection, Hx Cholecystectomy, Hx Hysterectomy, Hx Orthopedic Surgery - right hip replacement, R knee replacement, Other - Bowel resection. Denies: Hx Mastectomy, Hx Open Heart Surgery, Hx Pacemaker - Immunizations Immunizations up to date: Yes Hx Diphtheria, Pertussis, Tetanus Vaccination: Yes Hx Pneumococcal Vaccination: 06/27/10 Review of Systems - Review of Systems Constitutional: denies: Fever EENT: No symptoms reported Cardiovascular: denies: Chest pain Respiratory: denies: Short of breath Gastrointestinal: denies: Abdominal pain Genitourinary: Flank pain Musculoskeletal: Back pain Skin: No symptoms reported Neurological/Psychological: denies: Weakness, Numbness Physical Exam - Vital signs Vitals: Temp 98.7 F 03/24/20 18:00 - General General appearance: Appears well, Alert - HEENT Head: Normocephalic, Atraumatic Extraocular movements intact: Yes Pupils: PERRL - Respiratory Breath sounds: Normal - Cardiovascular Rhythm: Regular Heart sounds: Normal auscultation Pulses: Normal: Dorsalis pedis - Abdominal Inspection: Obese Distension: No distension Bowel sounds: Normal - Back Back: Other - No midline tenderness. Injection sites appear to be well-healing. There is some tenderness over the left SI joint - Extremities General upper extremity: Normal inspection General lower extremity: Normal inspection. No: Edema - Neurological Neuro grossly intact: Yes Cognition: Normal Orientation: AAOx4 Motor strength normal: LUE, RUE, LLE, RLE Sensory: Normal Notes: No saddle anesthesia - Psychological Associated symptoms: Normal affect - Skin Skin Temperature: Warm Course - Re-evaluation Re-evalutation: 74-year-old female recent cement kyphoplasty of L3 done secondary to a compression fracture, performed 6 days ago, here with a left lower back and flank pain. She is well-appearing on exam, nontoxic. She does have some tenderness to the left SI joint. No midline spinal tenderness. She has no numbness or weakness to her lower extremities and motor function is intact. Legs are warm and well perfused. Differential includes kidney stone versus postoperative pain versus pain from brace versus sciatica. I have ordered a CT abdomen to assess for stone, will also get a look at L3 via this modality. Start with Toradol and Robaxin for symptoms. 03/24/20 21:15 No leukocytosis or left shift. No acute anemia. Electrolytes within normal limits. Creatinine within normal limits. No elevation of LFTs or T bili. CT abdomen reviewed. Per radiology no hydronephrosis or obstructing urinary stones seen. No bowel obstruction or inflammation. No intraperitoneal free fluid or air. Kyphoplasty demonstrated. Overall read as no acute findings. 03/25/20 00:16 Urine does not suggest UTI or stone 03/25/20 00:22 Patient updated on results. She has ambulated without issue. She reports her symptoms are controlled. I discussed with her to please follow-up in [place] tomorrow as planned. Recommended that she use her medications at home, especially taking about an hour before getting in the car peer return precautions given, patient stable at time of discharge. - Vital Signs Vital signs: Temp Pulse Resp BP Pulse Ox 98.7 F 17 158/64 H 93 03/24/20 18:00 03/24/20 23:01 03/24/20 23:01 03/24/20 23:01 - Laboratory Result Diagrams: 03/24/20 18:35 03/24/20 18:35 Laboratory results interpreted by me: 03/24/20 03/24/20 03/24/20 18:35 18:35 23:50 RBC 5.29 H Hgb 15.7 H BUN 21 H Glucose 242 H Urine Protein 30 H Urine Glucose (UA) 50 H Urine Urobilinogen 2.0 H Discharge - Discharge Clinical Impression: Low back pain Qualifiers: Chronicity: acute Back pain laterality: left Sciatica presence: unspecified whether sciatica present Qualified Code(s): M54.5 - Low back pain Condition: Stable Disposition: HOME, SELF-CARE Additional Instructions: Please follow-up in [place] tomorrow as planned. Take a dose of pain medication before the car ride prior to leaving for the appointment. Return to the emergency department for any concerning or worsening symptoms. Referrals: LUIS MARTÍNEZ MD [Primary Care Provider] - Follow up as needed
--- NOTE | 2020-03-24 20:49 | RADIOLOGY REPORT (SQ) ---
CT ABDOMEN PELVIS WITHOUT IV CONTRAST HISTORY: Left flank pain. COMPARISON: 05/29/2016 TECHNIQUE: CT scan of the abdomen and pelvis was performed without IV contrast. This exam was performed according to our departmental dose-optimization program, which includes automated exposure control, adjustment of the mA and/or kV according to patient size and/or use of iterative reconstruction technique. FINDINGS: The lung bases are clear. No pleural or pericardial effusions. There is no hiatal hernia. There has been a prior cholecystectomy. Nonspecific calcification in the spleen. The liver, pancreas, adrenal glands, and kidneys are unremarkable. There is no hydronephrosis or obstructing urinary stones identified. Limited evaluation of the pelvis due to streak artifact. There has been a prior hysterectomy. Surgical sutures are seen in the sigmoid colon. There has been a prior appendectomy. No bowel obstruction or inflammation is seen. No intraperitoneal free fluid or free air is seen. Prior kyphoplasty of L2 and L3. Chronic compression deformity of L5 and L1. There are bilateral total hip arthroplasty is noted. The aorta is diffusely atherosclerotic. There is no abnormal body wall hernia. IMPRESSION: No acute abdominal or pelvic findings.
[2020-03-25 00:05] LABS: APPEARANCE,URINE CLEAR; BILIRUBIN,URINE NEGATIVE (NEGATIVE); COLOR,URINE YELLOW; GLUCOSE, URINE 50 mg/dL (NEGATIVE); KETONES,URINE NEGATIVE (NEGATIVE); LEUKOCYTE ESTERASE,URINE NEGATIVE (NEGATIVE); NITRITE,URINE NEGATIVE (NEGATIVE); PROTEIN,URINE 30 mg/dL (NEGATIVE)
[2020-03-25 00:37] VITALS: BP 150/60
== END 2020-03-25 00:30 | disposition home or self-care (01) ==
LOC: ER 17:57
DX: M54.5 Low back pain (principal); M54.9 Dorsalgia, unspecified; R10.9 Unspecified abdominal pain; Z98.890 Other specified postprocedural states; Z88.8 Allergy status to other drugs, medicaments and biological substances; F17.200 Nicotine dependence, unspecified, uncomplicated; I10 Essential (primary) hypertension; J44.9 Chronic obstructive pulmonary disease, unspecified; E11.9 Type 2 diabetes mellitus without complications
CPT/HCPCS: 99285; 96374; 36415; 85025; 80053; 81001; 74176; A9270; J1885

== ENCOUNTER 2020-06-23 14:45 | Emergency (ER) | payer MEDICARE, MEDICAID ==
--- NOTE | 2020-06-23 16:43 | ER Document Report ---
ED Medical Screen (RME) - General Chief Complaint: Nausea/Vomiting Stated Complaint: NAUSEA /VOMITING Time Seen by Provider: 06/23/20 16:37 Primary Care Provider: LUIS MARTÍNEZ MD [Primary Care Provider] - Follow up as needed Mode of Arrival: Wheelchair Information source: Patient Notes: HPI; 74-year-old female past medical history significant for diabetes and GERD presents to the emergency room complaining of nausea, vomiting, runny nose cough with congestion that started around 8:30 this morning. States she took DayQuil without relief. States she ate breakfast and then started vomiting and has not been able to stop vomiting since. Has been unable to tolerate anything p.o. After taking the DayQuil she felt dizzy and started having right-sided facial numbness. Symptoms have been persistent. No previous strokes. Denies any chest pain, shortness of breath, no difficulty breathing. Denies any COVID-19 exposure. PE: Alert and oriented x3. Decreased sensation to painful stimuli to the right cheek. Is/It Project Manager strength is equal and adequate bilaterally. Remaining fast exam within normal limits. Lungs: Clear to auscultation without rales, rhonchi, wheezes. Heart: Regular rate rhythm without murmurs, rubs, gallops. I have greeted and performed a rapid initial assessment of this patient. A comprehensive ED assessment and evaluation of the patient, analysis of test results and completion of the medical decision making process will be conducted by additional ED providers. I have specifically instructed the patient or family members with the patient to immediately return to any nursing staff should anything change in the patient's condition or with their chief complaint. TRAVEL OUTSIDE OF THE [place] IN LAST 30 DAYS: No - Related Data Allergies/Adverse Reactions: bupropion HCl [From Wellbutrin] Allergy (Severe, Verified 03/24/20 18:23) extreme depression Iodinated Contrast Media Allergy (Mild, Verified 03/24/20 18:23) itching Past Medical History - Past Medical History Cardiac Medical History: Reports: Hx Atrial Fibrillation, Hx Hypercholesterolemia, Hx Hypertension Denies: Hx Coronary Artery Disease, Hx Heart Attack Pulmonary Medical History: Reports: Hx COPD, Hx Sleep Apnea Denies: Hx Asthma, Hx Bronchitis, Hx Pneumonia Neurological Medical History: Denies: Hx Cerebrovascular Accident, Hx Seizures Endocrine Medical History: Reports: Hx Diabetes Mellitus Type 1, Hx Diabetes Mellitus Type 2 Renal/ Medical History: Denies: Hx Peritoneal Dialysis Malignancy Medical History: Reports: Hx Cervical Cancer GI Medical History: Reports: Hx Diverticulitis, Hx Gastroesophageal Reflux Disease. Denies: Hx Hepatitis, Hx Hiatal Hernia, Hx Ulcer Musculoskeltal Medical History: Reports Hx Arthritis - degenerative, Reports Hx Musculoskeletal Trauma Psychiatric Medical History: Reports: Hx Depression Infectious Medical History: Denies: Hx Hepatitis Past Surgical History: Reports: Hx Abdominal Surgery - bowel resection, Hx Cholecystectomy, Hx Hysterectomy, Hx Orthopedic Surgery - right hip replacement, R knee replacement, Other - Bowel resection. Denies: Hx Mastectomy, Hx Open Heart Surgery, Hx Pacemaker - Immunizations Immunizations up to date: Yes Hx Diphtheria, Pertussis, Tetanus Vaccination: Yes Physical Exam - Vital signs Vitals: Temp Pulse Resp BP Pulse Ox 98.1 F 88 18 189/77 H 95 06/23/20 15:18 06/23/20 15:18 06/23/20 15:18 06/23/20 15:18 06/23/20 15:18 Course - Vital Signs Vital signs: Temp Pulse Resp BP Pulse Ox 98.1 F 88 18 189/77 H 95 06/23/20 15:18 06/23/20 15:18 06/23/20 15:18 06/23/20 15:18 06/23/20 15:18 Doctor's Discharge - Discharge Referrals: LUIS MARTÍNEZ MD [Primary Care Provider] - Follow up as needed
[2020-06-23 17:34] LABS: ABSOLUTE BASOPHILS # (AUTO) 0.1 10^3/uL (0.0-0.2); ABSOLUTE EOSINOPHILS # (AUTO) 0.1 10^3/uL (0.0-0.6); ABSOLUTE LYMPHOCYTES (AUTO) 2.4 10^3/uL (0.5-4.7); ABSOLUTE MONOCYTES (AUTO) 0.4 10^3/uL (0.1-1.4); ABSOLUTE NEUT (AUTO) 5.3 10^3/uL (1.7-8.2); BASOPHILS % (AUTO) 0.8 % (0-2); EOSINOPHILS % (AUTO) 0.8 % (0-6); HEMOGLOBIN 15.6 g/dL (12.0-15.5); LYMPHOCYTES % (AUTO) 28.5 % (13-45); MEAN CORPUSCULAR HEMOGLOBIN 29.6 pg (27.0-33.4); MEAN CORPUSCULAR HGB CONC 34.6 g/dL (32.0-36.0); MEAN CORPUSCULAR VOLUME 86 fl (80-97); MONOCYTES % (AUTO) 5.4 % (3-13); PLATELET COUNT 235 10^3/uL (150-450); RED BLOOD COUNT 5.25 10^6/uL (3.72-5.28); SEGMENTED NEUTROPHILS % (AUTO) 64.5 % (42-78); TOTAL CELLS COUNTED % (AUTO) 100 %; WHITE BLOOD COUNT 8.2 10^3/uL (4.0-10.5)
[2020-06-23 17:40] LABS: PROTHROMBIN TIME 12.4 SEC (11.4-15.4)
[2020-06-23 17:51] LABS: ALBUMIN 4.5 g/dL (3.5-5.0); ALKALINE PHOSPHATASE 105 U/L (38-126); ANION GAP 7 (5-19); ASPARTATE AMINO TRANSFERASE 17 U/L (14-36); BILIRUBIN,DIRECT 0.2 mg/dL (0.0-0.4); BILIRUBIN,TOTAL 0.6 mg/dL (0.2-1.3); BLOOD UREA NITROGEN 13 mg/dL (7-20); CALCIUM 9.4 mg/dL (8.4-10.2); CARBON DIOXIDE 31 mmol/L (22-30); CHLORIDE 101 mmol/L (98-107); GLUCOSE 175 mg/dL (75-110); POTASSIUM 4.1 mmol/L (3.6-5.0); TOTAL PROTEIN 7.2 g/dL (6.3-8.2)
[2020-06-23] MEDS ORDERED: ONDANSETRON 4 MG TAB.RAPDIS PO ONE (18:02)
--- NOTE | 2020-06-23 18:14 | ER Document Report ---
ED General - General Chief Complaint: Nausea/Vomiting Stated Complaint: NAUSEA /VOMITING Time Seen by Provider: 06/23/20 16:37 Primary Care Provider: LUIS MARTÍNEZ MD [Primary Care Provider] - Follow up as needed Mode of Arrival: Wheelchair TRAVEL OUTSIDE OF THE [place] IN LAST 30 DAYS: No - HPI Notes: 74-year-old female presents with nausea and vomiting. Patient states that she woke up at 630 this morning and felt congested, sinuses runny, she states that she took some DayQuil. Around 8 AM states that she took breakfast and took her usual medications, however shortly after had nausea and vomiting. States that she did throw up her undigested pills. Patient states that right before she was about to vomit, she had some right facial numbness, lasted for a few minutes and resolved. She also states she has had cough productive of a white phlegm, congestion, dizziness, feeling cold, headache. Overall states that she feels terrible. States that she had a left earache that lasted for 2 days, resolved 2 days ago. Denies chest pain or abdominal pain. - Related Data Allergies/Adverse Reactions: bupropion HCl [From Wellbutrin] Allergy (Severe, Verified 03/24/20 18:23) extreme depression Iodinated Contrast Media Allergy (Mild, Verified 03/24/20 18:23) itching Past Medical History - General Information source: Patient - Social History Smoking Status: Unknown if Ever Smoked Family History: Hypertension - Past Medical History Cardiac Medical History: Reports: Hx Atrial Fibrillation, Hx Hypercholesterolemia, Hx Hypertension Denies: Hx Coronary Artery Disease, Hx Heart Attack Pulmonary Medical History: Reports: Hx COPD, Hx Sleep Apnea Denies: Hx Asthma, Hx Bronchitis, Hx Pneumonia Neurological Medical History: Denies: Hx Cerebrovascular Accident, Hx Seizures Endocrine Medical History: Reports: Hx Diabetes Mellitus Type 1, Hx Diabetes Mellitus Type 2 Renal/ Medical History: Denies: Hx Peritoneal Dialysis Malignancy Medical History: Reports: Hx Cervical Cancer GI Medical History: Reports: Hx Diverticulitis, Hx Gastroesophageal Reflux Disease. Denies: Hx Hepatitis, Hx Hiatal Hernia, Hx Ulcer Musculoskeletal Medical History: Reports Hx Arthritis - degenerative, Reports Hx Musculoskeletal Trauma Psychiatric Medical History: Reports: Hx Depression Infectious Medical History: Denies: Hx Hepatitis Past Surgical History: Reports: Hx Abdominal Surgery - bowel resection, Hx Cholecystectomy, Hx Hysterectomy, Hx Orthopedic Surgery - right hip replacement, R knee replacement, Other - Bowel resection. Denies: Hx Mastectomy, Hx Open Heart Surgery, Hx Pacemaker - Immunizations Immunizations up to date: Yes Hx Diphtheria, Pertussis, Tetanus Vaccination: Yes Hx Pneumococcal Vaccination: 06/27/10 Review of Systems - Review of Systems Constitutional: Chills. denies: Fever EENT: See HPI Cardiovascular: denies: Chest pain Respiratory: denies: Short of breath Gastrointestinal: Nausea, Vomiting. denies: Abdominal pain, Diarrhea Genitourinary: No symptoms reported Female Genitourinary: No symptoms reported Musculoskeletal: No symptoms reported Skin: No symptoms reported Hematologic/Lymphatic: No symptoms reported Neurological/Psychological: denies: Weakness, Numbness Physical Exam - Vital signs Vitals: Temp Pulse Resp BP Pulse Ox 98.1 F 88 18 189/77 H 95 06/23/20 15:18 06/23/20 15:18 06/23/20 15:18 06/23/20 15:18 06/23/20 15:18 - General General appearance: Alert In distress: None - HEENT Head: Normocephalic, Atraumatic Eyes: No: Scleral icterus Extraocular movements intact: Yes Pupils: PERRL - Respiratory Breath sounds: Normal - Cardiovascular Rhythm: Regular Heart sounds: Normal auscultation - Abdominal Distension: No distension Bowel sounds: Normal Tenderness: Nontender - Extremities General upper extremity: Normal ROM General lower extremity: Normal ROM - Neurological Neuro grossly intact: Yes Cognition: Normal Orientation: AAOx4 Speech: Normal Cranial nerves: Normal Motor strength normal: LUE, RUE, LLE, RLE Sensory: Normal - Psychological Associated symptoms: Normal affect - Skin Skin Temperature: Warm Course - Re-evaluation Re-evalutation: 74-year-old female with onset of nausea and vomiting this morning, along with multiple other symptoms suggestive of an acute viral illness. On exam she is alert and well-appearing, vital signs are stable, afebrile, lungs are clear, abdomen is soft without focal area of tenderness. She has no gross focal neuro deficits. Labs, imaging and EKG done through triage process. No leukocytosis or left shift. INR within normal limits, patient is not on warfarin. Electrolytes within normal limits. Creatinine within normal limits. No elevation of T bili or LFTs. Troponin negative. Head CT without acute finding. Chest x-ray without acute finding. EKG nonischemic. We will start symptomatic control with fluids, Pepcid and Zofran 06/23/20 20:07 Patient reports that her nausea had improved however is now returning, will retrial 06/23/20 21:29 Patient reports she is feeling markedly better and feels comfortable going home. She is agreeable to Covid testing given her symptoms. Discussed quarantine at home. Will prescribe Zofran. Precautions given, stable time of discharge. - Vital Signs Vital signs: Temp Pulse Resp BP Pulse Ox 98.1 F 88 17 221/75 H 95 06/23/20 15:18 06/23/20 15:18 06/23/20 21:30 06/23/20 21:30 06/23/20 21:30 - Laboratory Results Result Diagrams: 06/23/20 17:12 06/23/20 17:12 Laboratory Results Interpreted: 06/23/20 06/23/20 17:12 17:12 Hgb 15.6 H Carbon Dioxide 31 H Glucose 175 H Critical Laboratory Results Reviewed: No Critical Results - Radiology Results Critical Radiology Results Reviewed: No Critical Results - EKG Interpretation by Me Additional EKG results interpreted by me: EKG is interpreted by me. Sinus rhythm, rate 79. Narrow QRS, QTC within normal limits. No ST segment elevation or depression. LVH. Discharge - Discharge Clinical Impression: Person under investigation for COVID-19 Nausea & vomiting Qualifiers: Vomiting type: unspecified Vomiting Intractability: non-intractable Qualified Code(s): R11.2 - Nausea with vomiting, unspecified Disposition: HOME, SELF-CARE Instructions: COVID-19 Guidance for Persons Under Investigation Additional Instructions: Continue Zofran as needed for nausea/vomiting. Be sure to drink plenty of fluids. As discussed, your Covid swab should result in 2 to 3 days, please stay at home until you receive this result. Would advise you to start daily multivitamin that contains vitamin D. Return to the emergency department for any concerning worsening symptoms. Prescriptions: Ondansetron [Zofran Odt 4 mg Tablet] 1 tab PO Q4H PRN #15 tab.rapdis PRN Reason: For Nausea/Vomiting Referrals: LUIS MARTÍNEZ MD [Primary Care Provider] - Follow up as needed
--- NOTE | 2020-06-23 18:25 | RADIOLOGY REPORT (SQ) ---
EXAM DESCRIPTION: CT HEAD WITHOUT IMAGES COMPLETED DATE/TIME: 06/23/2020 5:31 pm REASON FOR STUDY: facial numbness COMPARISON: None. TECHNIQUE: Axial images acquired through the brain without intravenous contrast. Images reviewed wi th bone, brain and subdural windows. Additional sagittal and coronal reconstructions were generated. Images stored on PACS. All CT scanners at this facility use dose modulation, iterative reconstruction, and/or weight based d osing when appropriate to reduce radiation dose to as low as reasonably achievable (ALARA). [facility]: Dose Right [facility]: CareDose [facility]: Dose Right [facility]: Teradose 4D [facility]: Smart Fontacto RADIATION DOSE: CT Rad equipment meets quality standard of care and radiation dose reduction techniq ues were employed. CTDIvol: 53.2 mGy. DLP: 991 mGy-cm. mGy. LIMITATIONS: None. FINDINGS: VENTRICLES: Normal size and contour. CEREBRUM: No masses. No hemorrhage. No midline shift. No evidence for acute infarction. Few scatte red areas of low density in the white matter most likely chronic small vessel ischemic changes. CEREBELLUM: No masses. No hemorrhage. No alteration of density. No evidence for acute infarction. EXTRAAXIAL SPACES: No fluid collections. No masses. ORBITS AND GLOBE: No intra- or extraconal masses. Normal contour of globe without masses. CALVARIUM: No fracture. PARANASAL SINUSES: No fluid or mucosal thickening. SOFT TISSUES: No mass or hematoma. OTHER: No other significant finding. IMPRESSION: MILD CHRONIC MICROVASCULAR ISCHEMIA. NO ACUTE IMAGING FINDINGS IN THE BRAIN. EVIDENCE OF ACUTE STROKE: NO. COMMENT: Quality ID # [id number]: Final reports with documentation of one or more dose reduction techniques (e.g., Automated exposure control, adjustment of the mA and/or kV according to patient size, use of iterative reconstruction technique) TECHNICAL DOCUMENTATION: JOB ID: [id number] 2010 [employer]- All Rights Reserved Reading location - IP/workstation name: [email or web address]
[2020-06-23] MEDS ORDERED: GUAIFENESIN 600 MG TABLET.SA PO ONE (18:28)
[2020-06-23] MEDS ORDERED: FAMOTIDINE INJ/PF 20 MG/2 ML SDV IV ONE (18:28)
[2020-06-23] MEDS ORDERED: RINGERS SOLUTION,LACTATED 1,000 ML IV ONE (18:28)
--- NOTE | 2020-06-23 18:54 | RADIOLOGY REPORT (SQ) ---
EXAM DESCRIPTION: CHEST SINGLE VIEW IMAGES COMPLETED DATE/TIME: 06/23/2020 5:32 pm REASON FOR STUDY: facial numbness COMPARISON: 05/18/2019 EXAM PARAMETERS: NUMBER OF VIEWS: One view. TECHNIQUE: Single frontal radiographic view of the chest acquired. RADIATION DOSE: NA LIMITATIONS: None. FINDINGS: LUNGS AND PLEURA: No opacities, masses or pneumothorax. No pleural effusion. MEDIASTINUM AND HILAR STRUCTURES: No masses. Contour normal. HEART AND VASCULAR STRUCTURES: Heart normal in size. Normal vasculature. BONES: No acute findings. HARDWARE: None in the chest. OTHER: No other significant finding. IMPRESSION: NO ACUTE RADIOGRAPHIC FINDING IN THE CHEST. TECHNICAL DOCUMENTATION: JOB ID: [id number] 2010 [employer] - [employer]- All Rights Reserved Reading location - IP/workstation name: [email or web address]
[2020-06-23] MEDS ORDERED: ONDANSETRON HCL INJ/PF 4 MG/2 ML SDV IV ONE (20:06)
[2020-06-23 21:50] VITALS: BP 221/75
--- NOTE | 2020-06-24 09:05 | EKG REPORT ---
SEVERITY:- ABNORMAL ECG - SINUS RHYTHM FIRST DEGREE AV BLOCK CONSIDER LEFT VENTRICULAR HYPERTROPHY : Confirmed by: Anibal Bullard MD 24-Jun-2020 09:04:57
== END 2020-06-23 21:50 | disposition home or self-care (01) ==
LOC: ER 14:45
DX: R11.2 Nausea with vomiting, unspecified (principal); R20.0 Anesthesia of skin; R68.83 Chills (without fever); I11.9 Hypertensive heart disease without heart failure; I67.82 Cerebral ischemia; J44.9 Chronic obstructive pulmonary disease, unspecified; E11.9 Type 2 diabetes mellitus without complications; Z79.899 Other long term (current) drug therapy; Z85.41 Personal history of malignant neoplasm of cervix uteri; Z88.8 Allergy status to other drugs, medicaments and biological substances; Z91.041 Radiographic dye allergy status; Z20.828 Contact with and (suspected) exposure to other viral communicable diseases
CPT/HCPCS: 93005; 99285; 96361; 96374; 96375; 36415; 85025; 85610; 0241U ×4; 80053; 84484; 71045; 70450; 93010; A9270 ×2; J2405; J7120; S0028; C9803; S0119